=== PATIENT | female | born 1955 | race Caucasian/White ===

== ENCOUNTER 2020-08-10 14:04 | Outpatient (REF) | payer MEDICARE, SELFPAY | END 2020-08-10 14:05 | disposition home or self-care (01) | LOC: HO.LAB 14:04 | PROVIDERS: Visit Provider Internal Medicine | DX: Z78.0 Asymptomatic menopausal state (principal) | CPT/HCPCS: 88142 ==

== ENCOUNTER 2020-10-19 07:22 | Outpatient (REF) | payer MEDICARE, SELFPAY ==
--- NOTE | 2020-10-19 07:25 | MM_ITS ---
EXAMINATION: MM SCREENING DIGITAL BREAST TOMOSYNTHESIS, BILATERAL CLINICAL INFORMATION: Screening. Asymptomatic. The lifetime risk of breast cancer based on the Tyrer-Cuzick Model is 6%. COMPARISON: Mammography: 10/14/2019, 10/08/2018, 10/03/2017 TECHNIQUE: Digital breast tomosynthesis is performed in both the craniocaudal and mediolateral oblique views along with computer-aided detection (CAD). Synthesized 2D images are generated from the tomosynthesis. Additional left MLO view is provided. FINDINGS: The breasts are almost entirely fatty (ACR BI-RADS breast composition Category a). There are no significant masses, abnormal calcifications, or other abnormalities. Background stromal densities are stable. No significant changes. MM/MM tomosynthesis screening BI IMPRESSION: No mammographic evidence of malignancy. ASSESSMENT: BI-RADS 1: Negative RECOMMENDATION: Routine annual mammography screening. This patient's information was entered into a reminder system with a target due date for their next mammogram.
--- NOTE | 2020-10-19 07:35 | MM_ITS ---
EXAMINATION: BONE DENSITOMETRY CLINICAL INDICATION: Osteopenia of the left hip. COMPARISON: Previous BD dated 09/14/2016 and baseline BD dated 09/08/2014. TECHNIQUE: Using a [employer] DXA System (software version: 13.1) manufactured by [employer], dual-energy x-ray absorptiometry was performed of the lumbar spine and left hip. The images are of good technical quality. Summary results are attached. FINDINGS: AP SPINE L1-L4: Current: BMD 1.073 g/cm2, Z-score 1.0, T-score -0.9, normal, 3.7% increase from previous, 2.7% increase from baseline (<5% change is not significant). Prior: BMD 1.035 g/cm2. Baseline: BMD 1.045 g/cm2. LEFT FEMUR, NECK: Current: BMD 0.666 g/cm2, Z-score -1.0, T-score -2.7, osteoporosis. Prior: BMD 0.718 g/cm2. Baseline: BMD 0.740 g/cm2. LEFT FEMUR, TOTAL: Current: BMD 0.705 g/cm2, Z-score -1.0, T-score -2.4, osteopenia, 6.0% decrease from previous, 6.6% decrease from baseline (<5% change is not significant). Prior: BMD 0.750 g/cm2. Baseline: BMD 0.755 g/cm2. IDENTIFIED RISK FACTORS: Menopause. HISTORY OF FRACTURE: None listed. MEDICATIONS: Calcium. Vitamin D. MM/XR DEXA axial skeleton IMPRESSION: 1. DIAGNOSIS: Osteoporosis based on the lowest T-score value of -2.7 in the femoral neck applying World Health Organization criteria. 2. 10-YEAR FRACTURE RISK PREDICTION, FRAX: Major osteoporotic fracture (clinical spine, forearm, hip or shoulder) 14.2%. Hip fracture 3.5%. 3. Treatment Recommendations: NOF guidelines recommend consideration for treatment in postmenopausal women and men age 50 and older presenting with the following: -A hip or vertebral (clinical or morphometric) fracture. -T-score less than or equal to -2.5 at the femoral neck or spine after appropriate evaluation to exclude secondary causes. -Low bone mass at the hip or spine and a 10-year fracture probability by FRAX of greater than or equal to 3% for hip fracture or greater than or equal to 20% for major osteoporotic fracture based on the [place] adapted WHO algorithm. 4. Other Recommendations: All treatment decisions require clinical judgment and consideration of individual patient factors, including patient preferences, comorbidities, previous drug use, risk factors not captured in the FRAX model (e.g. frailty, falls, vitamin D deficiency, increased bone turnover, interval significant decline in bone density) and possible under or overestimation of fracture risk by FRAX. Additional medical evaluation for secondary cause of low bone mineral density may be appropriate. FUTURE SCAN RECOMMENDATION: People with diagnosed cases of osteoporosis or at high risk for fracture should have regular bone mineral density tests. For patients eligible for Medicare, routine testing is allowed once every 2 years. The testing frequency can be increased to one year for patients who have rapidly progressing disease, those who are receiving or discontinuing medical therapy to restore bone mass, or have additional risk factors.
== END 2020-10-19 07:23 | disposition home or self-care (01) ==
LOC: HO.MAMMO 07:22
PROVIDERS: PCP Internal Medicine; Visit Provider Internal Medicine
DX: Z12.31 Encounter for screening mammogram for malignant neoplasm of breast (principal); Z13.820 Encounter for screening for osteoporosis; M85.852 Other specified disorders of bone density and structure, left thigh; Z78.0 Asymptomatic menopausal state
CPT/HCPCS: 77063; 77067; 77080

== ENCOUNTER 2021-05-02 09:04 | Outpatient (REF) | payer MEDICARE, SELFPAY ==
[2021-05-02 12:01] LABS: Vitamin D 25-OH Total 36.4 ng/mL (>30)
[2021-05-02 12:31] LABS: Alanine Aminotransferase 23 U/L (0-31); Anion Gap 12 (12-20); Aspartate Amino Transferase 22 U/L (5-31); Blood Urea Nitrogen 12 mg/dL (9-16); Calcium 9.6 mg/dL (8.4-10.2); Carbon Dioxide 28 mmol/L (22-29); Chloride 103 mmol/L (96-108); Cholesterol 212 mg/dL; Estimated Glomerular Filt Rate > 60; Glucose Fasting 93 mg/dL (60-99); HDL Cholesterol 84 mg/dL; LDL Cholesterol Calculated 110 mg/dl; Potassium 4.5 mmol/L (3.3-5.1); Sodium 138 mmol/L (135-145); Triglycerides 93 mg/dL
== END 2021-05-02 09:05 | disposition home or self-care (01) ==
LOC: HO.HMGCLDS 09:04
PROVIDERS: PCP Internal Medicine; Visit Provider Internal Medicine
DX: Z00.00 Encounter for general adult medical examination without abnormal findings (principal); M81.0 Age-related osteoporosis without current pathological fracture; I10 Essential (primary) hypertension
CPT/HCPCS: 36415; 80048; 80061; 82306; 84450; 84460

== ENCOUNTER 2021-10-20 08:18 | Outpatient (REF) | payer MEDICARE, SELFPAY ==
--- NOTE | ~2021-10-20 | MM_ITS ---
EXAMINATION: MM SCREENING DIGITAL BREAST TOMOSYNTHESIS, BILATERAL CLINICAL INFORMATION: Screening. Asymptomatic. The lifetime risk of breast cancer based on the Tyrer-Cuzick Model is 5.4%. COMPARISON: Mammography: October 19, 2020 and studies dating back to September 08, 2014 TECHNIQUE: Digital breast tomosynthesis is performed in both the craniocaudal and mediolateral oblique views along with computer-aided detection (CAD). Synthesized 2D images are generated from the tomosynthesis. FINDINGS: The breasts are almost entirely fatty (ACR BI-RADS breast composition Category a). There are no significant masses, abnormal calcifications, or other abnormalities. MM/MM tomosynthesis screening BI IMPRESSION: There are no significant changes from prior study. ASSESSMENT: BI-RADS 1: Negative RECOMMENDATION: Routine annual mammography screening. This patient's information was entered into a reminder system with a target due date for their next mammogram.
--- NOTE | ~2021-10-20 | MM_ITS ---
EXAMINATION: BONE DENSITOMETRY CLINICAL INDICATION: Age-related osteoporosis without current pathological fracture. COMPARISON: Previous BD dated 10/19/2020 and baseline BD dated 09/08/2014. TECHNIQUE: Using a [employer] DXA System (software version: 13.1) manufactured by [employer], dual-energy x-ray absorptiometry was performed of the lumbar spine and left hip. The images are of good technical quality. Summary results are attached. FINDINGS: AP SPINE L1-L4: Current: BMD 1.076 g/cm2, Z-score 1.1, T-score -0.9, normal, 0.3% increase from previous, 3.0% increase from baseline (<5% change is not significant). Prior: BMD 1.073 g/cm2. Baseline: BMD 1.045 g/cm2. LEFT FEMUR, NECK: Current: BMD 0.755 g/cm2, Z-score -0.3, T-score -2.0, osteopenia. Prior: BMD 0.666 g/cm2. Baseline: BMD 0.740 g/cm2. LEFT FEMUR, TOTAL: Current: BMD 0.765 g/cm2, Z-score -0.4, T-score -1.9, osteopenia, 8.5% increase from previous, 1.3% increase from baseline (<5% change is not significant). Prior: BMD 0.705 g/cm2. Baseline: BMD 0.755 g/cm2. IDENTIFIED RISK FACTORS: Osteoporosis, menopause. HISTORY OF FRACTURE: None listed. MEDICATIONS: Calcium supplements or multivitamin, vitamin D, bisphosphonates. MM/XR DEXA axial skeleton IMPRESSION: 1. DIAGNOSIS: Osteopenia based on the lowest T-score value of -2.0 in the femoral neck applying World Health Organization criteria. 2. 10-YEAR FRACTURE RISK PREDICTION, FRAX: Major osteoporotic fracture (clinical spine, forearm, hip or shoulder) 10.9%. Hip fracture 1.9%. 3. Treatment Recommendations: NOF guidelines recommend consideration for treatment in postmenopausal women and men age 50 and older presenting with the following: -A hip or vertebral (clinical or morphometric) fracture. -T-score less than or equal to -2.5 at the femoral neck or spine after appropriate evaluation to exclude secondary causes. -Low bone mass at the hip or spine and a 10-year fracture probability by FRAX of greater than or equal to 3% for hip fracture or greater than or equal to 20% for major osteoporotic fracture based on the [place] adapted WHO algorithm. 4. Other Recommendations: All treatment decisions require clinical judgment and consideration of individual patient factors, including patient preferences, comorbidities, previous drug use, risk factors not captured in the FRAX model (e.g. frailty, falls, vitamin D deficiency, increased bone turnover, interval significant decline in bone density) and possible under or overestimation of fracture risk by FRAX. Additional medical evaluation for secondary cause of low bone mineral density may be appropriate. FUTURE SCAN RECOMMENDATION: People with diagnosed cases of osteoporosis or at high risk for fracture should have regular bone mineral density tests. For patients eligible for Medicare, routine testing is allowed once every 2 years. The testing frequency can be increased to one year for patients who have rapidly progressing disease, those who are receiving or discontinuing medical therapy to restore bone mass, or have additional risk factors.
== END 2021-10-20 08:19 | disposition home or self-care (01) ==
LOC: HO.MAMMO 08:18
PROVIDERS: PCP Internal Medicine; Visit Provider Internal Medicine
DX: Z12.31 Encounter for screening mammogram for malignant neoplasm of breast (principal); Z13.820 Encounter for screening for osteoporosis; M81.0 Age-related osteoporosis without current pathological fracture; Z79.83 Long term (current) use of bisphosphonates; Z78.0 Asymptomatic menopausal state
CPT/HCPCS: 77063; 77067; 77080

== ENCOUNTER 2022-05-31 08:50 | Outpatient (REF) | payer MEDICARE, SELFPAY ==
[2022-05-31 12:08] LABS: Vitamin D 25-OH Total 40.6 ng/mL (>30)
[2022-05-31 12:24] LABS: Alanine Aminotransferase 27 U/L (0-31); Anion Gap 16 (12-20); Aspartate Amino Transferase 23 U/L (5-31); Blood Urea Nitrogen 20 mg/dL (9-16); Calcium 9.9 mg/dL (8.4-10.2); Carbon Dioxide 29 mmol/L (22-29); Chloride 104 mmol/L (96-108); Cholesterol 227 mg/dL; Estimated Glomerular Filt Rate > 60; Glucose Fasting 115 mg/dL (60-99); HDL Cholesterol 82 mg/dL; LDL Cholesterol Calculated 130 mg/dl; Potassium 4.6 mmol/L (3.3-5.1); Sodium 144 mmol/L (135-145); Triglycerides 77 mg/dL
== END 2022-05-31 08:51 | disposition home or self-care (01) ==
LOC: HO.HMGCLDS 08:50
PROVIDERS: PCP Internal Medicine; Visit Provider Internal Medicine
DX: M85.852 Other specified disorders of bone density and structure, left thigh (principal); I10 Essential (primary) hypertension; Z79.83 Long term (current) use of bisphosphonates
CPT/HCPCS: 36415; 80048; 80061; 82306; 84450; 84460

== ENCOUNTER 2022-06-01 14:58 | Outpatient (REF) | payer MEDICARE, SELFPAY ==
--- NOTE | ~2022-06-01 | XR_ITS ---
EXAMINATION: XR ELBOW, RIGHT CLINICAL INFORMATION: Right elbow effusion COMPARISON: None TECHNIQUE: AP, lateral, and oblique views of the right elbow. FINDINGS: No appreciable bony fracture or dislocation. No osseous erosive process seen. No distinct abnormal distention of the elbow fat pads. Soft tissues over the olecranon appear unremarkable. XR/XR elbow RT min 3V IMPRESSION: No definite evidence for acute process.
== END 2022-06-01 14:59 | disposition home or self-care (01) ==
LOC: HO.HMGCX 14:58
PROVIDERS: PCP Internal Medicine; Visit Provider Internal Medicine
DX: M25.421 Effusion, right elbow (principal)
CPT/HCPCS: 73080

== ENCOUNTER → 2022-06-28 13:42 | Outpatient (BNVA) | payer MEDICARE, SELFPAY | PROVIDERS: PCP Internal Medicine; Visit Provider Physician Assistant | DX: M77.8 Other enthesopathies, not elsewhere classified (principal) | CPT/HCPCS: 99202 ==

== ENCOUNTER 2022-09-01 11:17 | Outpatient (REF) | payer MEDICARE, SELFPAY ==
[2022-09-01 14:10] LABS: MANUAL DIFF FLAG NO
[2022-09-01 14:26] LABS: Basophils Absolute Auto 0.1 X10*3/uL (0.0-0.2); Basophils Percent Auto 1.4 % (0-2); Eosinophils Absolute Auto 0.2 X10*3/uL (0.0-0.4); Eosinophils Percent Auto 3.6 % (0-4); Hematocrit 40.2 % (37.0-47.0); Hemoglobin 13.6 g/dl (12.0-16.0); Imm Gran Abs Auto 0.02 X10*3/uL (0.00-0.03); Imm Gran Pct Auto 0.5 % (0.0-0.4); Lymphocytes Absolute Auto 1.6 X10*3/uL (1.2-4.9); Lymphocytes Percent Auto 36.7 % (20-40); Mean Corpuscular HGB Conc 33.8 g/dl (31.0-35.0); Mean Corpuscular Hemoglobin 33.3 pg (27.0-33.0); Mean Corpuscular Volume 98.3 fL (80.0-98.0); Mean Platelet Volume 10.8 fL (9.4-12.3); Monocytes Absolute Auto 0.6 X10*3/uL (0.1-1.2); Monocytes Percent Auto 12.9 % (2-11); Neutrophils Percent Auto 44.9 % (45-73); Platelet Count 319 X10*3/uL (160-400); Red Blood Count 4.09 X10*6/uL (4.20-5.50); Red Cell Distribution Width 11.8 % (11.0-16.0); White Blood Count 4.4 X10*3/uL (4.8-10.8)
== END 2022-09-01 11:18 | disposition home or self-care (01) ==
LOC: HO.HMGCLDS 11:17
PROVIDERS: PCP Internal Medicine; Visit Provider Internal Medicine
DX: R00.2 Palpitations (principal); F41.9 Anxiety disorder, unspecified; Z83.49 Family history of other endocrine, nutritional and metabolic diseases
CPT/HCPCS: 36415; 84443; 85025

== ENCOUNTER 2022-10-24 07:45 | Outpatient (REF) | payer MEDICARE, SELFPAY ==
--- NOTE | ~2022-10-24 | MM_ITS ---
EXAMINATION: MM SCREENING DIGITAL BREAST TOMOSYNTHESIS, BILATERAL CLINICAL INFORMATION: Screening. Asymptomatic. The lifetime risk of breast cancer based on the Tyrer-Cuzick Model is 6%. COMPARISON: Mammography: 10/20/2021, 10/19/2020, 10/14/2019 TECHNIQUE: Digital breast tomosynthesis is performed in both the craniocaudal and mediolateral oblique views along with computer-aided detection (CAD). Synthesized 2D images are generated from the tomosynthesis. FINDINGS: The breasts are almost entirely fatty (ACR BI-RADS breast composition Category a). There are no significant masses, abnormal calcifications, or other abnormalities. Background stromal markings are similar to prior exams. No developing density or architectural abnormality. The axilla and skin contours are unremarkable. MM/MM tomosynthesis screening BI IMPRESSION: No mammographic evidence of malignancy. ASSESSMENT: BI-RADS 1: Negative RECOMMENDATION: Routine annual mammography screening. This patient's information was entered into a reminder system with a target due date for their next mammogram.
== END 2022-10-24 07:46 | disposition home or self-care (01) ==
LOC: HO.MAMMO 07:45
PROVIDERS: PCP Internal Medicine; Visit Provider Internal Medicine
DX: Z12.31 Encounter for screening mammogram for malignant neoplasm of breast (principal)
CPT/HCPCS: 77063; 77067

== ENCOUNTER → 2022-11-09 13:44 | Outpatient (BNVA) | payer MEDICARE, SELFPAY | PROVIDERS: PCP Internal Medicine; Referring Provider Internal Medicine; Visit Provider Internal Medicine Cardiovascular Disease | DX: R07.89 Other chest pain (principal); R00.2 Palpitations; I10 Essential (primary) hypertension | CPT/HCPCS: 99202 ==

== ENCOUNTER → 2022-11-23 13:59 | Outpatient (REF) | payer MEDICARE, SELFPAY ==
--- NOTE | 2022-11-23 14:02 | HM_ITS ---
Conclusion: 1. Patient was monitored for total period of 7 days 2. Baseline was normal sinus rhythm with average heart rate of 66 beats per minute 3. No significant pauses noted with lowest heart rate of 47 beats per minute 4. Total of 21,699 PACs accounting for about 6% of total beats account for frequent PACs 5. Frequent episodes of SVT total of 19 with fastest at 187 beats per minute in longest at 43 beats per minute 6. Patient activated the marker 14 times with associated symptoms of heart racing palpitation which correlated with either sinus rhythm or PACs. None of these symptoms correlated with SVT. MTDD
--- NOTE | 2022-11-23 14:02 | CA_ITS ---
Transthoracic Echocardiogram Patient (Last, First, Middle): Kim Cline A Gender: Female Date of : 1955 Age: 67 Procedure Date: 11/23/2022 Procedure Type: Transthoracic Echocardiogram Location: OP Height: 154.94 cm Weight: 54.43 kg BSA: 1.52 m2 Heart Rate: bpm BP: 117 / 80 mmHg Administrator Of Home Health: SARI Referring MD: Melvin Naik MD Railroad Firer/Fireman: Melvin Naik MD Symptoms: R00.2 - Palpitations Study Quality: Adequate ECG Rhythm: Sinus Conclusions: - Essentially normal study Findings Left Ventricle Normal left ventricular size, thickness, and systolic function. The visually estimated ejection fraction is between 65-70%. Spectral Doppler is indicative of a normal filling pattern. Peak GLS is -21.4%, within normal limits. Right Ventricle Normal right ventricular cavity size and systolic function. Atria Both atria are normal in size. There is no evidence of interatrial shunt. Aortic Valve Normal aortic valve structure and function. There is no aortic valve stenosis. There is no aortic valve regurgitation. Mitral Valve Normal mitral valve structure and function. There is trace mitral valve regurgitation. There is no mitral valve stenosis. Pulmonic Valve The pulmonic valve is likely normal. There is trace pulmonic valve regurgitation. Tricuspid Valve Normal tricuspid valve structure. There is mild tricuspid valve regurgitation. The right ventricular systolic pressure is normal. The right ventricular systolic pressure is 23 mmHg. Normal right atrial pressure. There is no evidence of pulmonary hypertension. Great Vessels All visible segments of the aorta are normal in size. The pulmonary artery was not well visualized. Venous The inferior vena cava is normal in size and collapses greater than 50% with inspiration. Pericardium/Pleural There is no evidence of pericardial effusion. Measurements 2D Linear Measurements IVSd: 0.89 0.6-0.9/0.6-1.0 cm LVIDd: 4.09 3.9-5.3/4.2-5.9 cm LVIDd Index: 2.69 2.4-3.2/2.2-3.1 cm/m2 LVIDs: 2.64 2.0-3.6 cm LVPWd: 1.00 0.7-1.1 cm LA Diam: 3.10 2.7-3.8/3.0-4.0 cm LAIDs Index: 2.04 1.5-2.3 cm/m2 LV Mass: 151.69 67-162/88-224 g LV Mass Index: 99.80 43-95/49-115 g/m2 LVOT Diam: 1.80 3.0+(-)1.3 cm 2D Systolic Function EF 4C: 65.10 >55% EF 2C: 71.90 >55% EF BiP: 68.80 >55% Mitral Valve MV Pk E: 0.82 MV PK A: 0.72 MV Decel Time: 199.00 E/A: 1.10 E'Lateral: 9.57 E'Medial: 6.31 E/E' Med: 13.00 E/E' Lat: 8.60 PHT: 58.00 MVA PHT: 3.79 Decel [place]: 4.13 Aortic Valve AoV Pk Van: 1.40 AoV Mn Van: 0.97 AoV VTI: 0.35 AoV Pk Grad: 8.00 Aov Mn Grad: 4.00 CONNIE Cont.VTI: 2.08 LVOT LVOT Pk Van: 1.32 LVOT Mn Van: 0.77 LVOT VTI: 0.29 LVOT Pk Grad: 7.00 LVOT Mn Grad: 3.00 LVOT Diam: 1.80 LVOT Area: 2.54 Diastolic Function MV Pk E: 0.82 MV Pk A: 0.72 E/A: 1.10 E'Medial: 6.31 E/E' Med: 13.00 E' Laterial: 9.57 E/E' Lat: 8.60 Right Ventricle TAPSE (mm): 25.40 TVS' Van: 12.60 Tricuspid Valve TR Pk Van: 2.25 TR Pk Grad: 20.00 RA Press: 3.00 RVSP: 23.00 Great Vessels Aorta Sinus of Valsalva: 2.73 2.0-3.[address] [place]: 2.47 1.7-3.4 cm Ao Asc: 2.80 2.1-3.4 cm Updated in Other Vendor System with Status of Final Melvin Naik MD electronically signed on 11/24/2022 1:56:47 PM with status of Final
== END ==
LOC: HO.CARD 13:59
PROVIDERS: PCP Internal Medicine; Visit Provider Internal Medicine Cardiovascular Disease
DX: R00.2 Palpitations (principal); I49.1 Atrial premature depolarization; I10 Essential (primary) hypertension
CPT/HCPCS: 93242; 93306; 93356

== ENCOUNTER 2022-12-06 07:14 | Outpatient (REF) | payer MEDICARE, SELFPAY ==
[2022-12-06 11:47] LABS: Estimated Average Glucose 111 mg/dL; Hemoglobin A1C 119.3301 umol/L; Hemoglobin A1c % 5.5 %
[2022-12-06 11:54] LABS: Glucose Fasting 91 mg/dL (60-99)
[2022-12-06 12:06] LABS: Vitamin D 25-OH Total 36.2 ng/mL (>30)
== END 2022-12-06 07:15 | disposition home or self-care (01) ==
LOC: HO.HMGCLDS 07:14
PROVIDERS: PCP Internal Medicine; Visit Provider Internal Medicine
DX: R73.01 Impaired fasting glucose (principal); Z78.0 Asymptomatic menopausal state
CPT/HCPCS: 36415; 82306; 82947; 83036

== ENCOUNTER → 2022-12-18 10:53 | Outpatient (REF) | payer MEDICARE, SELFPAY ==
--- NOTE | 2022-12-18 10:55 | CA_ITS ---
Acquisition Time: 2022-12-18 11:21:09 Total Exercise Time: 00:04:17 Test Indications: ABN EKG, CP Medications: SEE H Protocol: ABDIRAHMAN Max HR: 166 BPM 108% of Pred: 153 BPM Max BP: 115/062 mmHG Max Work Load: 5.7 METS Exercise stress test with exercise 4 min 17 sec of Abdirahman protocol, achieving 73% MPHR with request to stop due to leg fatigue, with mild sob, no chest discomfort, with isolated PACs, with normotensive response to exercise, with borderline EKG changes noted. Echo images obtained by tech at rest and immediately post peak exercise. Definity contrast used. Test reviewed with Dr Naik Referred By: Melvin Naik Overread By: MELLISSA GARCIA
== END ==
LOC: HO.CARD 10:53
PROVIDERS: PCP Internal Medicine; Visit Provider Internal Medicine Cardiovascular Disease
DX: R07.89 Other chest pain (principal)
CPT/HCPCS: 93350; Q9957

== ENCOUNTER → 2022-12-26 14:20 | Outpatient (BNVA) | payer MEDICARE, SELFPAY | PROVIDERS: PCP Internal Medicine; Referring Provider Internal Medicine; Visit Provider Internal Medicine Cardiovascular Disease | DX: I49.1 Atrial premature depolarization (principal); I49.9 Cardiac arrhythmia, unspecified; I10 Essential (primary) hypertension; R42 Dizziness and giddiness | CPT/HCPCS: 99212 ==

== ENCOUNTER 2023-06-01 07:07 | Outpatient (REF) | payer MEDICARE, SELFPAY ==
[2023-06-01 11:11] LABS: MANUAL DIFF FLAG NO
[2023-06-01 11:32] LABS: Basophils Absolute Auto 0.1 X10*3/uL (0.0-0.2); Basophils Percent Auto 1.7 % (0-2); Eosinophils Absolute Auto 0.3 X10*3/uL (0.0-0.4); Hemoglobin 13.4 g/dl (12.0-16.0); Imm Gran Abs Auto 0.01 X10*3/uL (0.00-0.03); Imm Gran Pct Auto 0.2 % (0.0-0.4); Lymphocytes Absolute Auto 1.6 X10*3/uL (1.2-4.9); Lymphocytes Percent Auto 38.8 % (20-40); Mean Corpuscular HGB Conc 33.5 g/dl (31.0-35.0); Mean Corpuscular Hemoglobin 33.9 pg (27.0-33.0); Mean Corpuscular Volume 101.3 fL (80.0-98.0); Mean Platelet Volume 10.6 fL (9.4-12.3); Monocytes Absolute Auto 0.4 X10*3/uL (0.1-1.2); Monocytes Percent Auto 10.5 % (2-11); Neutrophils Absolute Auto 1.8 x10*3/uL (2.0-8.3); Neutrophils Percent Auto 42.8 % (45-73); Platelet Count 334 X10*3/uL (160-400); Red Blood Count 3.95 X10*6/uL (4.20-5.50); Red Cell Distribution Width 11.7 % (11.0-16.0); White Blood Count 4.2 X10*3/uL (4.8-10.8)
[2023-06-01 11:53] LABS: Alanine Aminotransferase 21 U/L (0-31); Anion Gap 11 (12-20); Aspartate Amino Transferase 25 U/L (5-31); Blood Urea Nitrogen 17 mg/dL (9-16); Calcium 10.2 mg/dL (8.4-10.2); Carbon Dioxide 31 mmol/L (22-29); Chloride 105 mmol/L (96-108); Cholesterol 227 mg/dL (<200); Estimated Glomerular Filt Rate > 60; Glucose Fasting 92 mg/dL (60-99); HDL Cholesterol 79 mg/dL (>40); LDL Cholesterol Calculated 130 mg/dL (<100); Potassium 4.6 mmol/L (3.3-5.1); Sodium 142 mmol/L (135-145); Triglycerides 91 mg/dL (<150)
[2023-06-01 12:15] LABS: Vitamin D 25-OH Total 62.7 ng/mL (>30)
== END 2023-06-01 07:08 | disposition home or self-care (01) ==
LOC: HO.HMGCLDS 07:07
PROVIDERS: PCP Internal Medicine; Visit Provider Internal Medicine
DX: M85.852 Other specified disorders of bone density and structure, left thigh (principal); R73.01 Impaired fasting glucose; I49.1 Atrial premature depolarization; I10 Essential (primary) hypertension; F41.9 Anxiety disorder, unspecified; R53.81 Other malaise
CPT/HCPCS: 36415; 80048; 80061; 82306; 84450; 84460; 85025

== ENCOUNTER 2023-08-20 08:35 | Outpatient (AMB) | payer MEDICARE, SELFPAY ==
[2023-08-20 09:52] VITALS: BP 102/60; PULSE 50; TEMP 36.6; O2SAT 98; BMI 23.6
--- NOTE | 2023-08-20 09:52 | AM.OFFWIN_ITS ---
Intake Vital Signs 08/20/23 09:52 Height 5 ft 1 in Weight 125 lb BMI 23.6 BP 102/60 Blood Pressure Location Rt brachial Position Sitting Pulse 50 Pulse Source Pulse Oximeter Temp 97.9 F Temp Source Temporal Artery Scan Pulse Oximetry (%) 98 Intake Visit Reasons: EP both ears blocked Intake Note: pt is here for c/o bilateral ear blockage Patient Tobacco Use Status: Never used Tobacco Allergies codeine Allergy (Unknown, Verified 08/20/23 10:17) lightheadedness/dizzy Medication List - Last Reconciled 08/20/23 by Flex Ray MD alendronate 70 mg PO QWEEK 90 days amlodipine 5 mg PO DAILY 90 days calcium carbonate (Calcium) 600 mg PO DAILY cholecalciferol (vitamin D3) 50 mcg PO DAILY 90 days citalopram 10 mg PO DAILY lorazepam 0.5 mg PO DAILY PRN metoprolol succinate ER 12.5 mg PO DAILY multivitamin,[id number] (Complete Multivitamin tablet) 1 tab PO DAILY Do you need a note to return to daycare/school/sports/work: Yes HPI EP both ears blocked HPI Details 68-year-old female presents to the [facility] for a sick visit. Patient is reporting that both her ears are blocked. Difficulty hearing. [facility] Medical History Abnormal finding on EKG Anxiety Encounter for monitoring alendronate therapy Essential hypertension Impacted cerumen of both ears Impaired fasting glucose Osteopenia of left femoral neck Osteoporosis Rosacea Sensation of chest tightness Swelling of joint, elbow, right Surgical History History of appendectomy History of cataract surgery Hx of cholecystectomy Hx of colonoscopy Family History Father Hx of CABG CVD (cardiovascular disease) Mother HTN (hypertension) Parkinson disease Brother No problems noted. Brother No problems noted. Sister No problems noted. Housing: House Alcohol intake: never Patient Tobacco Use Status: Never used Tobacco e-Cigarette/Vaping Use: Never Used Second Hand Smoke Exposure: No Current occupational status: retired Current occupational exposures/hazards: No Cognitive needs: No Hearing needs: No Vision needs: Yes Physical Exam Vital Signs: Last Vital Signs Temp 97.9 F 08/20/23 09:52 Pulse 50 08/20/23 09:52 BP 102/60 08/20/23 09:52 Pulse Ox 98 08/20/23 09:52 BMI result Body Mass Index 23.6 HEENT Other: Right and left ears: Filled with wax. Office Procedures Cerumen Removal From which ear canal was the cerumen removed: left Removal: irrigation and otoscope w/curette Notes: patient tolerated procedure well [id number] Wax Removal by Spoon/Curette Assessment & Plan Assessment & Plan (1) Impacted cerumen of both ears: Code(s): H61.23 - Impacted cerumen, bilateral Plan Patient tolerated the procedure well. Orders: Orders AMB Cerumen Removal Today H61.23 - Impacted cerumen, bilateral Coding Level of Care Code Est Pt Level 3 (29536) Diagnoses Impacted cerumen of both ears H61.23 CPT Codes Office Procedure - CPT: 93889-Kwx Wax Removal by Spoon/Curette ([id number])
== END 2023-08-20 11:03 | disposition home or self-care (01) ==
PROVIDERS: PCP Internal Medicine; Visit Provider Internal Medicine
DX: H91.93 Unspecified hearing loss, bilateral (principal); H61.23 Impacted cerumen, bilateral
CPT/HCPCS: 69210; 99212

== ENCOUNTER 2023-10-30 11:41 | Outpatient (REF) | payer MEDICARE, SELFPAY ==
--- NOTE | ~2023-10-30 | MM_ITS ---
EXAMINATION: BONE DENSITOMETRY CLINICAL INDICATION: Other specified disorders of bone density and structure, left thigh. COMPARISON: Previous BD dated 10/20/2021 and baseline BD dated 09/08/2014. TECHNIQUE: Using a [employer] DXA System (software version: 13.1) manufactured by [employer], dual-energy x-ray absorptiometry was performed of the lumbar spine and left hip. The images are of good technical quality. Summary results are attached. FINDINGS: AP SPINE L1-L4 (excluding L3): The data of L1-L4 has been changed to exclude the L3 vertebral body, because degenerative sclerosis at this level may cause overestimation of lumbar spine density. Current: BMD 1.074 g/cm2, Z-score 1.1, T-score -0.8, normal, 4.8% increase from previous, 7.1% increase from baseline (<5% change is not significant). Prior: BMD 1.025 g/cm2. Baseline: BMD 1.003 g/cm2. LEFT FEMUR, NECK: Current: BMD 0.762 g/cm2, Z-score -0.2, T-score -2.0, osteopenia. Prior: BMD 0.755 g/cm2. Baseline: BMD 0.740 g/cm2. LEFT FEMUR, TOTAL: Current: BMD 0.770 g/cm2, Z-score -0.3, T-score -1.9, osteopenia, 0.7% increase from previous, 2.0% increase from baseline (<5% change is not significant). Prior: BMD 0.765 g/cm2. Baseline: BMD 0.755 g/cm2. IDENTIFIED RISK FACTORS: Osteoporosis. Alcohol (3 or more units per day). Menopause. HISTORY OF FRACTURE: None listed. MEDICATIONS: Calcium supplement and/or multivitamin. Vitamin D. Bisphosphonates. MM/XR DEXA axial skeleton IMPRESSION: 1. DIAGNOSIS: Osteopenia based on the lowest T-score value of -2.0 in the femoral neck applying World Health Organization criteria. 2. 10-YEAR FRACTURE RISK PREDICTION, FRAX: Not performed in this patient on estrogen or bone building treatments. 3. Treatment Recommendations: NOF guidelines recommend consideration for treatment in postmenopausal women and men age 50 and older presenting with the following: -A hip or vertebral (clinical or morphometric) fracture. -T-score less than or equal to -2.5 at the femoral neck or spine after appropriate evaluation to exclude secondary causes. -Low bone mass at the hip or spine and a 10-year fracture probability by FRAX of greater than or equal to 3% for hip fracture or greater than or equal to 20% for major osteoporotic fracture based on the [place] adapted WHO algorithm. 4. Other Recommendations: All treatment decisions require clinical judgment and consideration of individual patient factors, including patient preferences, comorbidities, previous drug use, risk factors not captured in the FRAX model (e.g. frailty, falls, vitamin D deficiency, increased bone turnover, interval significant decline in bone density) and possible under or overestimation of fracture risk by FRAX. Additional medical evaluation for secondary cause of low bone mineral density may be appropriate. FUTURE SCAN RECOMMENDATION: People with diagnosed cases of osteoporosis or at high risk for fracture should have regular bone mineral density tests. For patients eligible for Medicare, routine testing is allowed once every 2 years. The testing frequency can be increased to one year for patients who have rapidly progressing disease, those who are receiving or discontinuing medical therapy to restore bone mass, or have additional risk factors.
== END 2023-10-30 11:42 | disposition home or self-care (01) ==
LOC: HO.MAMMO 11:41
PROVIDERS: PCP Internal Medicine; Visit Provider Internal Medicine
DX: Z12.31 Encounter for screening mammogram for malignant neoplasm of breast (principal); Z13.820 Encounter for screening for osteoporosis; M85.852 Other specified disorders of bone density and structure, left thigh; Z78.0 Asymptomatic menopausal state
CPT/HCPCS: 77063; 77067; 77080

== ENCOUNTER → 2023-10-30 13:00 | Outpatient (BNV) | payer MEDICARE, SELFPAY | PROVIDERS: PCP Internal Medicine; Visit Provider Radiology Diagnostic Radiology | DX: Z12.31 Encounter for screening mammogram for malignant neoplasm of breast (principal) | CPT/HCPCS: 77063; 77067 ==

== ENCOUNTER 2024-01-08 12:11 | Outpatient (AMB) | payer MEDICARE, SELFPAY ==
[2024-01-08 12:32] VITALS: BP 110/68; PULSE 48; BMI 24.2
--- NOTE | 2024-01-08 12:32 | MHC.OFFVIS ---
Intake Vital Signs 01/08/24 12:32 Height 5 ft 1 in Weight 127 lb 13.89 oz BMI 24.2 BP 110/68 Blood Pressure Location Lt brachial Position Sitting Pulse 48 L Intake Visit Reasons: 1 yr Intake Note: 1 year follow-up with ekg feeling good Cab Driver Required: No Allergies codeine Allergy (Unknown, Verified 08/20/23 10:17) lightheadedness/dizzy HPI HPI Comments History of Present Illness Details Kim comes for follow-up. She says she walks 5-1/2 miles every day and is been doing well. She does get symptoms occasionally of fast heart rate when she checks her watches usually up to 80 beats per minute. She has not had any prolonged irregular heartbeat. She also occasionally feels fluttering in her chest. Denies any exertional chest pain or shortness of breath. Denies any orthopnea, PND, leg edema. No lightheadedness, syncope. Blood pressure remains very well control with systolic blood pressure between 100-110 mmHg. [facility] Medical History Abnormal finding on EKG Sensation of chest tightness Impaired fasting glucose Swelling of joint, elbow, right Osteopenia of left femoral neck Encounter for monitoring alendronate therapy Impacted cerumen of both ears Osteoporosis Rosacea Essential hypertension Anxiety Surgical History Hx of colonoscopy History of cataract surgery History of appendectomy Hx of cholecystectomy Family History Father Hx of CABG CVD (cardiovascular disease) Mother HTN (hypertension) Parkinson disease Brother No problems noted. Brother No problems noted. Sister No problems noted. Social History Housing: House Alcohol intake: never Patient Tobacco Use Status: Never used Tobacco e-Cigarette/Vaping Use: Never Used Second Hand Smoke Exposure: No Current occupational status: retired Current occupational exposures/hazards: No Cognitive needs: No Hearing needs: No Vision needs: Yes Review of Systems Const Denies chills, Denies fatigue, Denies fever(s), Denies frequent falls, Denies weakness, Denies weight gain and Denies weight loss ENT Denies dizziness Card Denies chest pain, Denies leg edema, Denies lightheadedness, Denies palpitations, Denies dyspnea, Denies dyspnea on exertion, Denies orthopnea and Denies other (loss of consciousness) Resp Denies cough, Denies dyspnea and Denies dyspnea on exertion GI Denies hematochezia and Denies change in stool character Musc Denies abnormal gait, Denies muscle weakness, Denies numbness, Denies radiating pain into limb and Denies tingling Neuro Denies abnormal gait, Denies dizziness, Denies frequent falls, Denies numbness, Denies tingling and Denies weakness Endo Denies fatigue and Denies palpitations Physical Exam Vital Signs: Last Vital Signs Pulse 48 L 01/08/24 12:32 BP 110/68 01/08/24 12:32 BMI result Body Mass Index 24.2 Const General: cooperative, comfortable, no acute distress, well developed, alert, awake, Physically active and well groomed Nutritional Appearance: well nourished and thin Orientation/consciousness: patient oriented x3 Limitations: no limitations Neck Neck: Yes trachea midline, Yes supple and Yes no JVD Resp Effort & Inspection: normal respiratory effort Auscultation: clear to auscultation bilaterally Cardio Jugular venous distension: no JVD Palpation: normal PMI Rate: regular rate Rhythm: regular rhythm Heart sounds: S1 normal heart sound present, S2 normal heart sound present, no click, no gallops, no murmurs and no rubs Neuro General: patient oriented x3 Extrem General: Yes no clubbing, cyanosis or edema Office Procedures EKG Details: EKG shows normal sinus rhythm with first-degree AV block with PACs with rightward axis [id number], Complete Assessment & Plan Assessment & Plan (1) Cardiac arrhythmia: Code(s): I49.9 - Cardiac arrhythmia, unspecified Plan: Patient with cardiac arrhythmias with prior frequent PACs as a short runs of SVT with no major life-limiting symptoms on low-dose of metoprolol at this point time. Continue the same. Vagal maneuvers were discussed. Advised to avoid stimulants. Stress mitigation strategies were discussed. Risk of potentially developing atrial fibrillation was discussed. She develops any prolonged irregular heartbeat that do not subside advised to call my office for EKG or go to the emergency room. She understands and agrees. (2) Essential hypertension: Code(s): I10 - Essential (primary) hypertension Plan: Hypertension which is currently extremely well optimized continue current therapy with amlodipine and metoprolol therapy. She has not having any symptoms of orthostatic lightheadedness at this point in time. Continue maintain adequate hydration. Low-salt diet was discussed advised to intermittently measure blood pressure at home and maintain a log. Goal blood pressure less than 130/84. Will follow up in the clinic in 2 years time, sooner p.r.n.. Thank you for allowing me to partake in the care Coding Level of Care Code Est Pt Level 4 (16316) Diagnoses Cardiac arrhythmia I49.9 Essential hypertension I10 CPT Codes EKG - CPT: 83174-[id number], Complete ([id number])
== END 2024-01-08 12:52 | disposition home or self-care (01) ==
PROVIDERS: Visit Provider Internal Medicine Cardiovascular Disease
DX: I49.9 Cardiac arrhythmia, unspecified (principal); I10 Essential (primary) hypertension
CPT/HCPCS: 93010; 99214

== ENCOUNTER → 2024-01-08 12:11 | Outpatient (BNVA) | payer MEDICARE, SELFPAY | PROVIDERS: Visit Provider Internal Medicine Cardiovascular Disease | DX: I49.9 Cardiac arrhythmia, unspecified (principal); I10 Essential (primary) hypertension | CPT/HCPCS: 93005; 99212 ==

== ENCOUNTER 2024-04-09 13:13 | Outpatient (AMB) | payer MEDICARE, SELFPAY ==
[2024-04-09 13:25] VITALS: BP 110/60; PULSE 58; O2SAT 98; BMI 24.0
--- NOTE | 2024-04-09 13:25 | MHC.PC.OV ---
Vital Signs 04/09/24 13:25 Height 5 ft 1 in Weight 127 lb BMI 24.0 BP 110/60 Blood Pressure Location Rt brachial Position Sitting Pulse 58 Pulse Source Pulse Oximeter Pulse Oximetry (%) 98 Oxygen Delivery Method Room Air Intake Visit Reasons: PE Intake Note: Pt is here today for her PE: Last mammogram 10/30/23, bone density scan 10/30/23, colonoscopy 06/19/17 Allergies codeine Allergy (Unknown, Verified 04/09/24 13:28) lightheadedness/dizzy Tobacco use date assessed: 04/09/24 Fall risk assessment: No Falls in past year Last assessed Fall Risk: 04/09/24 Dental Screening Dental Screen Date: 04/09/24 Did you have a dental visit in the last 12 months?: Yes Did you have a dental problem in the last 6 months where you did not have access to dental care?: No Was dental information given to patient?: Patient has dentist HPI PE HPI Details 69-year-old lady with generalized anxiety disorder and impaired fasting glucose levels, macrocytosis without anemia, general cardiac arrhythmia currently controlled on metoprolol succinate 12.5 mg daily, followed by cardiology, has hypertension, and osteopenia of left femoral neck currently on alendronate, here today for her physical exam. -she is up-to-date with her screening mammogram and bone density scan done earlier this year, which showed benign findings and normal bone density in lumbar spine and osteopenia in left femoral neck and left femur, unchanged from previous test. Last colonoscopy was done in 2016 with mild diverticulosis and internal and external hemorrhoids noted, done by Dr. Crespo, due for recheck in 2026. Has generalized anxiety disorder, currently on citalopram 10 mg daily. However she has been experiencing more anxiety attacks lately, due to some increased stressors in personal life, would like to try increasing dose to 20 mg daily [facility] Medical History (Updated 04/13/24 @ 18:03 by Ashley Guzmán MD) Macrocytosis without anemia Impaired fasting glucose Osteopenia of left femoral neck Encounter for monitoring alendronate therapy Impacted cerumen of both ears Osteoporosis Rosacea Essential hypertension Anxiety Surgical History Hx of colonoscopy History of cataract surgery History of appendectomy Hx of cholecystectomy Family History Father Hx of CABG CVD (cardiovascular disease) Mother HTN (hypertension) Parkinson disease Brother No problems noted. Brother No problems noted. Sister No problems noted. Social History Housing: House Alcohol intake: never Patient Tobacco Use Status: Never used Tobacco e-Cigarette/Vaping Use: Never Used Second Hand Smoke Exposure: No Current occupational status: retired Current occupational exposures/hazards: No Cognitive needs: No Hearing needs: No Vision needs: Yes Questionnaire PHQ-9 Over the last 2 weeks, how often have you been bothered by any of the following problems? 1. Little interest or pleasure in doing things: several days 2. Feeling down, depressed, or hopeless: not at all 3. Trouble falling or staying asleep, or sleeping too much: several days 4. Feeling tired or having little energy: several days 5. Poor appetite or overeating: not at all 6. Feeling bad about yourself - or that you are a failure or have let yourself or your family down: not at all 7. Trouble concentrating on things, such as reading the newspaper or watching television: not at all 8. Moving or speaking so slowly that other people could have noticed. Or the opposite - being so fidgety or restless that you have been moving around a lot more than usual: not at all 9. Thoughts that you would be better off or of hurting yourself in some way: not at all Total score: 3 Depression Screening Interpretation: Negative Depression Screening Done: Yes 90056 - PHQ-9 Billing: Yes Source: Developed by Drs. Oswaldo Prasad, Wendy Dewey, Yung Michael and colleagues, with an educational leslie from [employer]. Thrive Questionnaire Date Thrive assessed: 04/08/24 I am a: Patient What is your living situation today?: I have a steady place to live Within the past 12 months, did the food you bought not last and you didn't have the money to get more?: Never true Within the past 12 months, did you worry whether your food would run out before you got money to buy more?: Never true Do you have trouble paying for medicines?: No Do you have trouble getting transportation to medical appointments?: No Do you have trouble paying your heating and electricity bill?: No Do you have trouble taking care of your child, family member or friend?: No Do you have trouble with day-to-day activities such as bathing, preparing meals, shopping, managing finances, etc.?: No Are you currently unemployed and looking for a job?: No Are you interested in more education?: No Please select the resources that you would like help with: Housing/Residential Currently or been in a relationship where the following occur: No concerns reported THRIVE Score: 0 AUDIT C Alcohol Use Questionnaire (AUDIT-C) 1. How often do you have a drink containing alcohol?: 2-3 times a week 2. How many drinks containing alcohol do you have on a typical day when you are drinking?: 1 or 2 3. How often do you have six or more drinks on one occasion?: Never Total Score: 3 MAXIMUS-7 AMB Questionnaire MAXIMUS-7 Date MAXIMUS - 7 assessed: 04/09/24 Feeling nervous, anxious, or on edge: 2 = More than half the days Not being able to stop or control worryin = Several days Worrying too much about different things: 1 = Several days Trouble relaxin = Several days Being so restless that it is hard to sit still: 0 = Not at all Becoming easily annoyed or irritable: 1 = Several days Feeling afraid as if something awful might happen: 0 = Not at all Total MAXIMUS-7 score (0-4 normal; 5-9 mild; 10-14 moderate; 15-21 severe): 6 Source: Developed by Drs. Oswaldo Prasad, Wendy Dewey, Yung Michael and colleagues, with an educational leslie from [employer]. MAXIMUS-7 Assessment Billing MAXIMUS-7 Assessment Tool: MAXIMUS-7 Assessment 08408 Review of Systems Const Denies chills, Denies fatigue, Denies fever(s), Denies frequent falls and Denies weakness Eyes Denies change in vision ENT Denies dizziness Card Denies chest pain, Denies leg edema, Denies lightheadedness, Denies palpitations, Denies dyspnea, Denies dyspnea on exertion and Denies orthopnea Resp Denies cough, Denies dyspnea and Denies dyspnea on exertion GI Denies hematochezia and Denies change in stool character Reports no additional complaints Musc Denies abnormal gait, Denies muscle weakness, Denies numbness, Denies radiating pain into limb and Denies tingling Skin/Breast Denies breast pain, Denies breast mass and Denies rash Neuro Denies abnormal gait, Denies dizziness, Denies frequent falls, Denies numbness, Denies tingling and Denies weakness Psych Reports as per HPI Endo Denies fatigue and Denies palpitations Irving/Lymph Reports no additional complaints Aller/Immun Reports no additional complaints Physical exam (Primary Care) Vital Signs: Last Vital Signs Pulse 58 04/09/24 13:25 BP 110/60 04/09/24 13:25 Pulse Ox 98 04/09/24 13:25 Oxygen Delivery Method Room Air 04/09/24 13:25 BMI result Body Mass Index 24.0 Tobacco/Smoking Status: Tobacco use Status Tobacco use date assessed 04/09/24 04/09/24 13:31 Patient Tobacco Use Status Never used Tobacco 04/09/24 13:27 e-Cigarette/Vaping Use Never Used 04/09/24 13:27 PHQ-9: PHQ-9 Score PHQ-9: Total score 4 04/09/24 14:07 Depression Screening Interpretation: Negative Thrive Assessment: Date of Thrive Assessment Date Thrive assessed 04/08/24 04/09/24 13:27 Currently or been in a relationship where the following occur: No concerns reported Const General: no acute distress Nutritional Appearance: average body habitus Orientation/consciousness: patient oriented x3 HENMT Head: Yes normocephalic Ears: external ears normal General nose exam: Normal external nose present Face and sinus: Yes face symmetric Mouth: Normal oral and palatal mucosa present and moist mucous membranes Eyes General: appearance normal, both eyes and all related structures Neck Neck: Yes full ROM and Yes no lymphadenopathy Chest Chest palpation & inspection: normal inspection of the chest Breast/axilla palpation: normal palpation of the breasts Resp Effort & Inspection: normal respiratory effort and able to speak in complete sentences Auscultation: clear to auscultation bilaterally Cardio Rate: regular rate Rhythm: regular rhythm Heart sounds: S1 normal heart sound present and S2 normal heart sound present GI Inspection: Yes normal to inspection Palpation (GI): Soft to palpation, nontender and no guarding Auscultation: normal bowel sounds General: Yes no CVA tenderness Back/Spine/Pelvis Back: no CVA tenderness and No back tenderness Skin General skin exam: no rashes or lesions noted Neuro General: patient oriented x3, gait normal, moves all extremities, no focal motor deficits and CN's II-XI intact bilaterally Extrem General: Yes full ROM, Yes no joint enlargement, Yes no clubbing, cyanosis or edema and Yes normal gait Psych Appearance: grossly normal Mental Status: mental status grossly normal Speech and movement: Normal speech and movement present Affect: normal affect Attitude: cooperative Thought process: Normal thought process present Thought content: Normal thought content present Assessment and Plan Assessment & Plan (1) Osteopenia of left femoral neck: Comment: Noted on bone density done in 2021 Code(s): M85.852 - Other specified disorders of bone density and structure, left thigh Plan: Reviewed recent bone density scan results, continue with alendronate 70 mg once a week, together with calcium and vitamin-D supplements (2) Essential hypertension: Code(s): I10 - Essential (primary) hypertension Plan: Blood pressure at goal of less than 130/80. Continue amlodipine mg daily. Reinforced importance of following a low sodium diet, getting regular exercise, and lowering stress levels. (3) Anxiety: Code(s): F41.9 - Anxiety disorder, unspecified Plan: Will increase citalopram dose to 20 mg once a day. Discussed symptoms of anxiety. Discussed other ways to relieve stress including : exercise or a massage, Get enough rest, Avoid alcohol, caffeine, nicotine, and illegal drugs which can increase your anxiety level and cause sleep problems. (4) Macrocytosis without anemia: Code(s): D75.89 - Other specified diseases of blood and blood-forming organs Plan: Ordered a repeat CBC, vitamin B12 and vitamin-D level (5) Annual visit for general adult medical examination with abnormal findings: Code(s): Z00.01 - Encounter for general adult medical examination with abnormal findings Plan: Will check appropriate labs. Continue with regular dental visit every 6 months and regular eye exams, at least every 2 years. Take adequate calcium in diet and vitamin-D 3 at 2000 IU per cap once a day, in addition to weight-bearing exercises to help maintain good muscle tone and weight control. Instructed to do self-breast exam, and continue to get yearly mammogram Immunization information provided: Yearly flu vaccine, shingles vaccine starting at age 50, at age 65 to start getting Prevnar 13 followed 1 year later by Pneumovax 23. Colonoscopy (6) Cardiac arrhythmia: Code(s): I49.9 - Cardiac arrhythmia, unspecified Plan: Currently on metoprolol succinate 12.5 mg 1 daily followed by cardiology Orders: Orders Complete Blood Count Auto Diff 04/09/24 D75.89 - Other specified diseases of blood and blood-forming organs, F41.9 - Anxiety disorder, unspecified, I10 - Essential (primary) hypertension, M85.852 - Other specified disorders of bone density and structure, left thigh, Z00.01 - Encounter for general adult medical examination with abnormal findings, Z51.81 - Encounter for therapeutic drug level monitoring, Z79.83 - snf (current) use of bisphosphonates Basic Metabolic Panel Fasting 04/09/24 D75.89 - Other specified diseases of blood and blood-forming organs, F41.9 - Anxiety disorder, unspecified, I10 - Essential (primary) hypertension, M85.852 - Other specified disorders of bone density and structure, left thigh, Z00.01 - Encounter for general adult medical examination with abnormal findings, Z51.81 - Encounter for therapeutic drug level monitoring, Z79.83 - manager long term care (current) use of bisphosphonates Alanine Aminotransferase 04/09/24 D75.89 - Other specified diseases of blood and blood-forming organs, F41.9 - Anxiety disorder, unspecified, I10 - Essential (primary) hypertension, M85.852 - Other specified disorders of bone density and structure, left thigh, Z00.01 - Encounter for general adult medical examination with abnormal findings, Z51.81 - Encounter for therapeutic drug level monitoring, Z79.83 - snf (current) use of bisphosphonates Aspartate Amino Transferase 04/09/24 D75.89 - Other specified diseases of blood and blood-forming organs, F41.9 - Anxiety disorder, unspecified, I10 - Essential (primary) hypertension, M85.852 - Other specified disorders of bone density and structure, left thigh, Z00.01 - Encounter for general adult medical examination with abnormal findings, Z51.81 - Encounter for therapeutic drug level monitoring, Z79.83 - snf (current) use of bisphosphonates Vitamin B12 and Folate 04/09/24 D75.89 - Other specified diseases of blood and blood-forming organs, F41.9 - Anxiety disorder, unspecified, I10 - Essential (primary) hypertension, M85.852 - Other specified disorders of bone density and structure, left thigh, Z00.01 - Encounter for general adult medical examination with abnormal findings, Z51.81 - Encounter for therapeutic drug level monitoring, Z79.83 - snf (current) use of bisphosphonates Vitamin D 25-OH Total 04/09/24 D75.89 - Other specified diseases of blood and blood-forming organs, F41.9 - Anxiety disorder, unspecified, I10 - Essential (primary) hypertension, M85.852 - Other specified disorders of bone density and structure, left thigh, Z00.01 - Encounter for general adult medical examination with abnormal findings, Z51.81 - Encounter for therapeutic drug level monitoring, Z79.83 - snf (current) use of bisphosphonates Lipid Panel 04/09/24 D75.89 - Other specified diseases of blood and blood-forming organs, F41.9 - Anxiety disorder, unspecified, I10 - Essential (primary) hypertension, M85.852 - Other specified disorders of bone density and structure, left thigh, Z00.01 - Encounter for general adult medical examination with abnormal findings, Z51.81 - Encounter for therapeutic drug level monitoring, Z79.83 - manager long term care (current) use of bisphosphonates Medications: Changed From citalopram 10 mg PO DAILY 90 tabs 1RF To citalopram 20 mg PO DAILY 30 tabs 5RF Coding Level of Care Code Est Pt Prev Care >65y(06516) Diagnoses Osteopenia of left femoral neck M85.852 Essential hypertension I10 Anxiety F41.9 Macrocytosis without anemia D75.89 Annual visit for general adult medical examination with abnormal findings Z00.01 Cardiac arrhythmia I49.9 Additional Codes MAXIMUS-7 Assessment Billing - MAXIMUS-7 Assessment Tool: MAXIMUS-7 Assessment 29156 ([id number])
== END 2024-04-09 14:12 | disposition home or self-care (01) ==
PROVIDERS: PCP Internal Medicine; Visit Provider Internal Medicine
DX: Z00.00 Encounter for general adult medical examination without abnormal findings (principal); M85.852 Other specified disorders of bone density and structure, left thigh; I10 Essential (primary) hypertension; F41.9 Anxiety disorder, unspecified; D75.89 Other specified diseases of blood and blood-forming organs; I49.9 Cardiac arrhythmia, unspecified
CPT/HCPCS: 99397

== ENCOUNTER 2024-04-15 08:05 | Outpatient (REF) | payer MEDICARE, SELFPAY ==
[2024-04-15 10:09] LABS: MANUAL DIFF FLAG NO
[2024-04-15 10:17] LABS: Basophils Absolute Auto 0.1 X10*3/uL (0.0-0.2); Basophils Percent Auto 1.4 % (0-2); Eosinophils Absolute Auto 0.3 X10*3/uL (0.0-0.4); Eosinophils Percent Auto 5.8 % (0-4); Hematocrit 38.4 % (37.0-47.0); Hemoglobin 12.9 g/dl (12.0-16.0); Imm Gran Abs Auto 0.01 X10*3/uL (0.00-0.03); Imm Gran Pct Auto 0.2 % (0.0-0.4); Lymphocytes Absolute Auto 1.1 X10*3/uL (1.2-4.9); Lymphocytes Percent Auto 26.3 % (20-40); Mean Corpuscular HGB Conc 33.6 g/dl (31.0-35.0); Mean Corpuscular Hemoglobin 33.7 pg (27.0-33.0); Mean Corpuscular Volume 100.3 fL (80.0-98.0); Mean Platelet Volume 10.9 fL (9.4-12.3); Monocytes Absolute Auto 0.5 X10*3/uL (0.1-1.2); Monocytes Percent Auto 12.2 % (2-11); Neutrophils Absolute Auto 2.3 x10*3/uL (2.0-8.3); Neutrophils Percent Auto 54.1 % (45-73); Platelet Count 272 X10*3/uL (160-400); Red Blood Count 3.83 X10*6/uL (4.20-5.50); White Blood Count 4.3 X10*3/uL (4.8-10.8)
[2024-04-15 10:37] LABS: Alanine Aminotransferase 25 U/L (0-31); Anion Gap 14 (12-20); Aspartate Amino Transferase 18 U/L (5-31); Blood Urea Nitrogen 17 mg/dL (9-16); Calcium 10.1 mg/dL (8.4-10.2); Carbon Dioxide 27 mmol/L (22-29); Chloride 104 mmol/L (96-108); Cholesterol 225 mg/dL (<200); Estimated Glomerular Filt Rate > 60; Glucose Fasting 100 mg/dL (60-99); HDL Cholesterol 80 mg/dL (>40); LDL Cholesterol Calculated 133 mg/dL (<100); Potassium 4.9 mmol/L (3.3-5.1); Sodium 140 mmol/L (135-145); Triglycerides 62 mg/dL (<150)
[2024-04-15 10:44] LABS: Vitamin D 25-OH Total 61.2 ng/mL (>30)
[2024-04-15 11:12] LABS: Folate 12.7 ng/mL (> or = 4.0); Vitamin B12 371 pg/mL (200-900)
== END 2024-04-15 08:06 | disposition home or self-care (01) ==
LOC: HO.HMGCLDS 08:05
PROVIDERS: PCP Internal Medicine; Visit Provider Internal Medicine
DX: Z00.01 Encounter for general adult medical examination with abnormal findings (principal); M85.852 Other specified disorders of bone density and structure, left thigh; I10 Essential (primary) hypertension; F41.9 Anxiety disorder, unspecified; D75.89 Other specified diseases of blood and blood-forming organs; Z51.81 Encounter for therapeutic drug level monitoring; Z79.83 Long term (current) use of bisphosphonates
CPT/HCPCS: 36415; 80048; 80061; 82306; 82607; 82746; 84450; 84460; 85025

== ENCOUNTER 2024-09-08 11:35 | Outpatient (REF) | payer MEDICARE, SELFPAY ==
--- NOTE | ~2024-09-08 | XR_ITS ---
EXAMINATION: XR HIP LEFT CLINICAL INFORMATION: Pain in left hip M25.552. COMPARISON: CT Pelvis with IV contrast 09/25/2005 (report only). TECHNIQUE: Two views of the left hip. FINDINGS: Left hip joint spacing and alignment are normal in appearance. No suspicious skeletal lesions identified. Incidental note made of scattered pelvic phleboliths. No additional dystrophic soft tissue calcifications identified. Grossly normal bone mineralization visualized. XR/XR hip LT min 2V IMPRESSION: Normal left hip. Electronically signed by: Yunior Rodriguez MD 10/23/2024 08:27 AM [facility]
== END 2024-09-08 11:36 | disposition home or self-care (01) ==
LOC: HO.HMGCX 11:35
PROVIDERS: PCP Internal Medicine; Visit Provider Internal Medicine
DX: M25.552 Pain in left hip (principal); F41.9 Anxiety disorder, unspecified; I10 Essential (primary) hypertension; M85.852 Other specified disorders of bone density and structure, left thigh; R73.01 Impaired fasting glucose; Z79.899 Other long term (current) drug therapy
CPT/HCPCS: 73502; 96127; 99212

== ENCOUNTER 2024-09-08 11:35 | Outpatient (AMB) | payer MEDICARE, SELFPAY ==
[2024-09-08 12:31] VITALS: BP 110/76; PULSE 57; O2SAT 98; BMI 23.4
--- NOTE | 2024-09-08 12:31 | A.OFFPC_ITS ---
Vital Signs 09/08/24 12:31 Height 5 ft 1 in Weight 124 lb BMI 23.4 BP 110/76 Blood Pressure Location Rt brachial Position Sitting Pulse 57 Pulse Source Pulse Oximeter Pulse Oximetry (%) 98 Oxygen Delivery Method Room Air Intake Visit Reasons: Follow up anxiety, HTN, IFG Allergies codeine Allergy (Unknown, Verified 09/08/24 12:53) lightheadedness/dizzy Medication List - Last Reconciled 09/08/24 by Ashley Guzmán MD alendronate 70 mg PO QWEEK 90 days amlodipine 5 mg PO DAILY 90 days calcium carbonate (Calcium 600) 600 mg PO DAILY cholecalciferol (vitamin D3) 50 mcg PO DAILY 90 days citalopram 20 mg PO DAILY lorazepam 0.5 mg PO DAILY PRN metoprolol succinate ER 12.5 mg (1/2 x 25 mg) PO DAILY multivitamin,[id number] (Complete Multivitamin tablet) 1 tab PO DAILY Tobacco use date assessed: 09/08/24 Fall risk assessment: 1 Fall in past year Last assessed Fall Risk: 09/08/24 Dental Screening Dental Screen Date: 04/09/24 HPI Follow up anxiety, HTN, IFG HPI Details - The patient is a 69 year old female pr esenting today for follow-up. - She has chronic anxiety managed with c italopram, reporting no side effects and expressing satisfaction with current management. - Reports a history of essential hyperte nsion, currently on amlodipine 5 mg once a day and metoprolol succinate ER 12.5 mg once a day. Blood pressure readings are stable. - Alendronate has been prescribed for os teopenia; patient completed a recent bone density scan indicating slight improvement in the left femur and spine. - Reports left lower back pain, with sym ptoms consistent with piriformis syndrome, involving discomfort when moving certain ways, affecting the left side primarily. [facility], LAT[facility] Medical History Macrocytosis without anemia Impaired fasting glucose Osteopenia of left femoral neck Encounter for monitoring alendronate therapy Impacted cerumen of both ears Osteoporosis Rosacea Essential hypertension Anxiety Surgical History Hx of colonoscopy History of cataract surgery History of appendectomy Hx of cholecystectomy Family History Father Hx of CABG CVD (cardiovascular disease) Mother HTN (hypertension) Parkinson disease Brother No problems noted. Brother No problems noted. Sister No problems noted. Social History Housing: House Alcohol intake: never Patient Tobacco Use Status: Never used Tobacco e-Cigarette/Vaping Use: Never Used Second Hand Smoke Exposure: No service: No Current occupational status: retired Current occupational exposures/hazards: No Cognitive needs: No Hearing needs: No Vision needs: Yes Questionnaire Thrive Questionnaire Date Thrive assessed: 04/08/24 I am a: Patient What is your living situation today?: I have a steady place to live Within the past 12 months, did the food you bought not last and you didn't have the money to get more?: Never true Within the past 12 months, did you worry whether your food would run out before you got money to buy more?: Never true Do you have trouble paying for medicines?: No Do you have trouble getting transportation to medical appointments?: No Do you have trouble paying your heating and electricity bill?: No Do you have trouble taking care of your child, family member or friend?: No Do you have trouble with day-to-day activities such as bathing, preparing meals, shopping, managing finances, etc.?: No Are you currently unemployed and looking for a job?: No Are you interested in more education?: No Please select the resources that you would like help with: None Currently or been in a relationship where the following occur: No concerns reported THRIVE Score: 0 MAXIMUS-7 AMB Questionnaire MAXIMUS-7 Date MAXIMUS - 7 assessed: 09/08/24 Feeling nervous, anxious, or on edge: 0 = Not at all Not being able to stop or control worryin = Not at all Worrying too much about different things: 0 = Not at all Trouble relaxin = Not at all Being so restless that it is hard to sit still: 0 = Not at all Becoming easily annoyed or irritable: 0 = Not at all Feeling afraid as if something awful might happen: 0 = Not at all Total MAXIMUS-7 score (0-4 normal; 5-9 mild; 10-14 moderate; 15-21 severe): 0 Source: Developed by Drs. Oswaldo Prasad, Wendy Dewey, Yung Michael and colleagues, with an educational leslie from [employer]. MAXIMUS-7 Assessment Billing MAXIMUS-7 Assessment Tool: MAXIMUS-7 Assessment 83306 Review of Systems Const Denies chills, Denies fatigue, Denies fever(s), Denies frequent falls and Denies weakness Eyes Denies change in vision ENT Denies dizziness Card Denies chest pain, Denies leg edema, Denies lightheadedness, Denies palpitations, Denies dyspnea, Denies dyspnea on exertion and Denies orthopnea Resp Denies cough, Denies dyspnea and Denies dyspnea on exertion GI Denies hematochezia and Denies change in stool character Reports no additional complaints Musc Reports as per HPI, Denies abnormal gait, Denies muscle weakness and Denies numbness Skin/Breast Denies rash Neuro Denies abnormal gait, Denies dizziness, Denies frequent falls, Denies numbness and Denies weakness Psych Reports as per HPI Endo Denies fatigue and Denies palpitations Irving/Lymph Reports no additional complaints Aller/Immun Reports no additional complaints Physical exam (Primary Care) Vital Signs: Last Vital Signs Pulse 57 09/08/24 12:31 BP 110/76 09/08/24 12:31 Pulse Ox 98 09/08/24 12:31 Oxygen Delivery Method Room Air 09/08/24 12:31 BMI result Body Mass Index 23.4 Tobacco/Smoking Status: Tobacco use Status Tobacco use date assessed 09/08/24 09/08/24 12:34 Patient Tobacco Use Status Never used Tobacco 09/08/24 12:32 e-Cigarette/Vaping Use Never Used 09/08/24 12:32 Thrive Assessment: Date of Thrive Assessment Date Thrive assessed 04/08/24 09/08/24 12:32 Currently or been in a relationship where the following occur: No concerns reported Const General: no acute distress Nutritional Appearance: average body habitus Orientation/consciousness: patient oriented x3 HENMT Ears: external ears normal General nose exam: Normal external nose present Face and sinus: Yes face symmetric Mouth: Normal oral and palatal mucosa present and moist mucous membranes Eyes General: appearance normal, both eyes and all related structures Neck Neck: Yes full ROM and Yes no lymphadenopathy Resp Effort & Inspection: normal respiratory effort and able to speak in complete sentences Auscultation: clear to auscultation bilaterally Cardio Rate: regular rate Rhythm: regular rhythm Heart sounds: S1 normal heart sound present and S2 normal heart sound present GI Inspection: Yes normal to inspection Palpation (GI): Soft to palpation, nontender and no guarding Auscultation: normal bowel sounds Back/Spine/Pelvis Other: Tenderness on palpation over upper part of left buttock, negative straight leg raising sign bilaterally full range of motion of left hip joint Skin General skin exam: no rashes or lesions noted Neuro General: patient oriented x3, gait normal, moves all extremities, no focal motor deficits and CN's II-XI intact bilaterally Extrem General: Yes full ROM, Yes no joint enlargement, Yes no clubbing, cyanosis or edema and Yes normal gait Psych Appearance: grossly normal Mental Status: mental status grossly normal Speech and movement: Normal speech and movement present Affect: normal affect Attitude: cooperative Thought process: Normal thought process present Thought content: Normal thought content present Coding Level of Care Code Est Pt Level 4 (57269) Diagnoses Pain of left hip M25.552 Anxiety F41.9 Essential hypertension I10 Osteopenia of left femoral neck M85.852 Impaired fasting glucose R73.01 Additional Codes MAXIMUS-7 Assessment Billing - MAXIMUS-7 Assessment Tool: MAXIMUS-7 Assessment 13406 ([id number]) Assessment & Plan Assessment & Plan (1) Pain of left hip: Code(s): M25.552 - Pain in left hip (2) Anxiety: Code(s): F41.9 - Anxiety disorder, unspecified Category: Medical (3) Essential hypertension: Code(s): I10 - Essential (primary) hypertension Category: Medical (4) Osteopenia of left femoral neck: Comment: Noted on bone density done in 2021 Code(s): M85.852 - Other specified disorders of bone density and structure, left thigh Category: Medical (5) Impaired fasting glucose: Code(s): R73.01 - Impaired fasting glucose Category: Medical Plan: Your previous fasting blood sugars were elevated above 100 mg/dL. Impaired glucose metabolism increases the risk for developing diabetes mellitus type 2, as well as heart attack and stroke later on. Lifestyle changes that promotes weight loss, healthy eating habits, and regular exercise are important, and can prevent the progression to diabetes Plan - Continue with current medication regimen and monitor for any side effects. Lorazepam refill sent - continue alendronate, continue vitamin-D 3 supplementation, and take adequate calcium from dietary sources. Reinforced importance of doing regular weight- bearing exercise repeat another bone density scan in 2025 - Schedule and complete x-ray of left hip joint, for evaluation of left-sided leg discomfort. - recommended application of heat, or, ice, and rest when experiencing musculoskeletal discomfort. - Plan for annual blood work ahead of next year's physical exam. - Utilize the patient portal for access to health records and test results. Patient was informed and verbally consented to the use of an ambient scribe for clinic note documentation during this visit. Orders: Orders Lipid Panel 05/16/25 F41.9 - Anxiety disorder, unspecified, I10 - Essential (primary) hypertension, M85.852 - Other specified disorders of bone density and structure, left thigh, R73.01 - Impaired fasting glucose, Z13.220 - Encounter for screening for lipoid disorders Alanine Aminotransferase 05/16/25 F4.9 - Anxiety disorder, unspecified, I10 - Essential (primary) hypertension, M85.852 - Other specified disorders of bone density and structure, left thigh, R73.01 - Impaired fasting glucose, Z13.220 - Encounter for screening for lipoid disorders Basic Metabolic Panel Fasting 05/16/25 F41.9 - Anxiety disorder, unspecified, I10 - Essential (primary) hypertension, M85.852 - Other specified disorders of bone density and structure, left thigh, R73.01 - Impaired fasting glucose, Z13.220 - Encounter for screening for lipoid disorders XR hip LT min 2V 09/08/24 M25.552 - Pain in left hip Vitamin D 25-OH Total 05/16/25 F41.9 - Anxiety disorder, unspecified, I10 - Essential (primary) hypertension, M85.852 - Other specified disorders of bone density and structure, left thigh, R73.01 - Impaired fasting glucose, Z13.220 - Encounter for screening for lipoid disorders Aspartate Amino Transferase 05/16/25 F41.9 - Anxiety disorder, unspecified, I10 - Essential (primary) hypertension, M85.852 - Other specified disorders of bone density and structure, left thigh, R73.01 - Impaired fasting glucose, Z13.220 - Encounter for screening for lipoid disorders Medications: Refilled lorazepam 0.5 mg PO DAILY PRN 14 tabs 0RF anxiety F41.9 - Anxiety disorder, unspecified
== END 2024-09-08 13:14 | disposition home or self-care (01) ==
PROVIDERS: PCP Internal Medicine; Visit Provider Internal Medicine
DX: M25.552 Pain in left hip (principal); F41.9 Anxiety disorder, unspecified; I10 Essential (primary) hypertension; M85.852 Other specified disorders of bone density and structure, left thigh; R73.01 Impaired fasting glucose

== ENCOUNTER 2024-11-04 11:47 | Outpatient (REF) | payer MEDICARE, SELFPAY | END 2024-11-04 11:48 | disposition home or self-care (01) | LOC: HO.MAMMO 11:47 | PROVIDERS: PCP Internal Medicine; Visit Provider Internal Medicine | DX: Z12.31 Encounter for screening mammogram for malignant neoplasm of breast (principal) | CPT/HCPCS: 77063; 77067 ==

== ENCOUNTER → 2024-11-04 12:00 | Outpatient (BNV) | payer MEDICARE, SELFPAY | PROVIDERS: PCP Internal Medicine; Visit Provider Internal Medicine | DX: Z12.31 Encounter for screening mammogram for malignant neoplasm of breast (principal) | CPT/HCPCS: 77063; 77067 ==

== ENCOUNTER 2024-11-05 07:55 | Outpatient (AMB) | payer MEDICARE, SELFPAY ==
[2024-11-05 08:15] VITALS: BP 108/68; PULSE 53; O2SAT 98
--- NOTE | 2024-11-05 08:15 | AM.OFFWIN_ITS ---
Intake Vital Signs 11/05/24 08:15 Weight 125 lb BP 108/68 Blood Pressure Location Lt brachial Position Sitting Pulse 53 Pulse Source Pulse Oximeter Pulse Oximetry (%) 98 Oxygen Delivery Method Room Air Intake Visit Reasons: EP Ear flush Intake Note: Patient here for ear flushing. Patient Tobacco Use Status: Never used Tobacco Allergies codeine Allergy (Unknown, Verified 11/05/24 08:29) lightheadedness/dizzy Do you need a note to return to daycare/school/sports/work: No HPI HPI Comments History of Present Illness Details History of Present Illness - The patient is a 69-year-old female pr esenting with wax build up in both ears. - The primary concern involves a chronic issue of cerumen buildup that causes muffled hearing, which typically requires annual intervention. - There is no accompanying pain, but hea ring becomes impaired as the impaction increases. - She has utilized cerumenolytics previo usly on occasion to manage the condition and prevent wax buildup. - Treatment history includes previous ep isodes where ear irrigation was performed. Physical Exam General: Cooperative, healthy appearing, comfortable, no acute distress and well developed Orientation: Patient oriented x3 Limitations: No limitations Head: Normal to inspection Ears: Hearing muffled due to wax buildup bilaterally, bilateral TM with cerumen impaction Nose: Normal external nose present Face and sinus: Normal facial exam Eyes: Appearance normal, both eyes and all related structures Neck: Normal visual inspection and Yes full ROM Respiratory: Normal respiratory effort and able to speak in complete sentences. Skin: No rashes or lesions noted Neuro: Patient oriented x3 Extremities: Normal to inspection [facility] Medical History (Updated 11/05/24 @ 08:36 by Kim Garcia PA-C) Impacted cerumen of both ears Macrocytosis without anemia Impaired fasting glucose Osteopenia of left femoral neck Encounter for monitoring alendronate therapy Osteoporosis Rosacea Essential hypertension Anxiety Surgical History Hx of colonoscopy History of cataract surgery History of appendectomy Hx of cholecystectomy Family History Father Hx of CABG CVD (cardiovascular disease) Mother HTN (hypertension) Parkinson disease Brother No problems noted. Brother No problems noted. Sister No problems noted. Social History Housing: House Alcohol intake: never Patient Tobacco Use Status: Never used Tobacco e-Cigarette/Vaping Use: Never Used Second Hand Smoke Exposure: No service: No Current occupational status: retired Current occupational exposures/hazards: No Cognitive needs: No Hearing needs: No Vision needs: Yes Review of Systems Const All systems reviewed & are unremarkable except as noted in HPI and below Physical Exam Vital Signs: Last Vital Signs Pulse 53 11/05/24 08:15 BP 108/68 11/05/24 08:15 Pulse Ox 98 11/05/24 08:15 Oxygen Delivery Method Room Air 11/05/24 08:15 Office Procedures Cerumen Removal From which ear canal was the cerumen removed: bilateral Removal: irrigation Notes: patient tolerated procedure well, no complications and ear canal clear [id number] Irrigation/Lavage Assessment & Plan Assessment & Plan (1) Impacted cerumen of both ears: Code(s): H61.23 - Impacted cerumen, bilateral Plan: Upon the patient's agreement, ear irrigation was done to resolve the current imp action. The patient was informed about the potential for using these agents as a prophylactic measure, recommending usage approximately every two weeks to minimize recurrence. This preventive strategy could potentially reduce the frequency of necessary interventions. Ear canals clear s/p irrigation. Patient was informed and verbally consented to the use of an ambient scribe for clinic note documentation during this visit. Coding Level of Care Code Est Pt Level 4 (54986) Diagnoses Impacted cerumen of both ears H61.23 CPT Codes Office Procedure - CPT: 32174-Dax Irrigation/Lavage ([id number])
== END 2024-11-05 09:16 | disposition home or self-care (01) ==
PROVIDERS: PCP Internal Medicine; Visit Provider Physician Assistant
DX: H61.23 Impacted cerumen, bilateral (principal)

== ENCOUNTER → 2024-11-05 07:55 | Outpatient (BNVA) | payer MEDICARE, SELFPAY | PROVIDERS: PCP Internal Medicine | DX: H61.23 Impacted cerumen, bilateral (principal) | CPT/HCPCS: 69209; 99212 ==

== ENCOUNTER 2024-12-02 10:43 | Outpatient (AMB) | payer OTHER, MEDICARE, SELFPAY ==
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
[2024-12-02 11:07] VITALS: BP 112/70; PULSE 61; O2SAT 98
== END 2024-12-02 12:05 | disposition home or self-care (01) ==
PROVIDERS: PCP Internal Medicine; Visit Provider Physician Assistant
DX: M54.2 Cervicalgia (principal); V89.2XXA Person injured in unspecified motor-vehicle accident, traffic, initial encounter; Z04.2 Encounter for examination and observation following work accident

== ENCOUNTER → 2024-12-02 10:43 | Outpatient (BNVA) | payer OTHER, MEDICARE, SELFPAY | PROVIDERS: PCP Internal Medicine; Visit Provider Physician Assistant ==

== ENCOUNTER 2025-01-23 13:32 | Outpatient (AMB) | payer OTHER, MEDICARE, SELFPAY ==
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
[2025-01-23 13:56] VITALS: BP 116/78; PULSE 52; O2SAT 98; BMI 23.6
== END 2025-01-23 15:03 | disposition home or self-care (01) ==
PROVIDERS: PCP Internal Medicine; Visit Provider Physician Assistant
DX: M54.2 Cervicalgia (principal); V89.2XXD Person injured in unspecified motor-vehicle accident, traffic, subsequent encounter

== ENCOUNTER 2025-01-23 13:32 | Outpatient (REF) | payer OTHER, MEDICARE, SELFPAY ==
--- NOTE | ~2025-01-23 | XR_ITS ---
EXAMINATION: XR CERVICAL SPINE CLINICAL INFORMATION: M54.2 - Cervicalgia COMPARISON: None available. TECHNIQUE: 6 views of the cervical spine, inclusive of bilateral oblique views, were obtained. FINDINGS: There is a minimal right convex scoliosis, possibly positional. There is straightening of the normal lordosis. There is no fracture, compression deformity, or suspicious bone lesion. Craniocervical junction and C1-2 articulation are intact and aligned. There is a 2 mm degenerative retrolisthesis of C5 on C6, and a 4 mm anterolisthesis of C7 on T1. Alignment is otherwise anatomic. Severe disc degeneration is present C5-6 with sclerosis of the endplates and disc osteophytic spurs. Moderate to severe degeneration is present C4-5, C6-7 and C7-T1. There is relative preservation of C2-3. There is normal facet alignment, however there are multilevel left greater than right hypertrophic degenerative facet changes present. Oblique views demonstrate mild and moderate left right neural foraminal narrowing at C5-6 and C6-7. There is no prevertebral soft tissue abnormality. Imaged lung apices are clear. XR/XR cervical spine 5V IMPRESSION: No acute bony abnormalities. Moderate cervical spondylosis, most significant C5-6, and C7-T1. Electronically signed by: Gilmar Morales MD 01/23/2025 03:01 PM EDT
== END 2025-01-23 13:33 | disposition home or self-care (01) ==
LOC: HO.HMGCX 13:32
PROVIDERS: PCP Internal Medicine; Visit Provider Physician Assistant
DX: M54.2 Cervicalgia (principal); V89.2XXD Person injured in unspecified motor-vehicle accident, traffic, subsequent encounter
CPT/HCPCS: 72050

== ENCOUNTER → 2025-01-23 14:33 | Outpatient (BNV) | payer OTHER, MEDICARE, SELFPAY | PROVIDERS: PCP Internal Medicine; Visit Provider Radiology Diagnostic Radiology | DX: M54.2 Cervicalgia (principal); M47.892 Other spondylosis, cervical region | CPT/HCPCS: 72050 ==

== ENCOUNTER 2025-02-17 15:00 | Outpatient (RCR) | payer OTHER, MEDICARE, SELFPAY ==
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
--- NOTE | 2025-03-23 08:35 | MHC.PT.DC ---
[facility] [place] Office [place] Office [place] Office [address] [phone] F: [phone] F: [phone] F: [phone] F: [phone] Physical Therapy Discharge Report Diagnosis: This is a 69 yo female presenting to skilled PT with a script for cervicalgia. Date of Surgery: Date of Evaluation: 01/06/25 Date of Discharge: 03/23/25 Treatments to Date: 11 Cancellations to Date: 0 No Shows to Date: 0 Discharge Status: Patient Elected to Stop Recommend MD Follow-up Discharge Summary: 02/17: Pt without much change since evaluation day. She has come to 11 visits of PT. At this time she would benefit from a referral to another provider as PT is not improving her cervical ROM or symptoms. DC to MD. Educated to continue with HEP as tolerated. Patient's chart was DC'd after 30 days. Electronically signed by: Betina Flores PT Please sign and return to therapist. Thank you for your referral.
== END 2025-03-23 08:35 | disposition home or self-care (01) ==
LOC: HO.PTCHIC 15:00
PROVIDERS: PCP Internal Medicine; Visit Provider Internal Medicine
DX: M54.2 Cervicalgia (principal); V89.2XXA Person injured in unspecified motor-vehicle accident, traffic, initial encounter
CPT/HCPCS: 97110; 97140; 97161; 97162

== ENCOUNTER 2025-02-19 14:39 | Outpatient (AMB) | payer OTHER, MEDICARE, SELFPAY ==
--- NOTE | 2025-02-19 14:48 | A.OFFPC_ITS ---
Vital Signs 02/19/25 14:50 Height 5 ft 1 in Weight 125 lb BMI 23.6 BP 112/60 Blood Pressure Location Lt brachial Position Sitting Respiration 16 Pulse 62 Pulse Source Pulse Oximeter Temp 98.2 F Temp Source Oral Pulse Oximetry (%) 99 Oxygen Delivery Method Room Air Intake Visit Reasons: f/up from Physical therapy Intake Note: Pt is here today f/u from physical therapy Allergies codeine Allergy (Unknown, Verified 02/19/25 15:19) lightheadedness/dizzy Medication List - Last Reconciled 02/19/25 by Ashley Guzmán MD alendronate 70 mg PO QWEEK 90 days amlodipine 5 mg PO DAILY 90 days calcium carbonate (Calcium 600) 600 mg PO DAILY cholecalciferol (vitamin D3) 50 mcg PO DAILY 90 days citalopram 20 mg PO DAILY lorazepam 0.5 mg PO DAILY PRN metoprolol succinate ER 12.5 mg (1/2 x 25 mg) PO DAILY multivitamin,[id number] (Complete Multivitamin tablet) 1 tab PO DAILY Tobacco use date assessed: 02/19/25 Fall risk assessment: No Falls in past year Last assessed Fall Risk: 02/19/25 Dental Screening Dental Screen Date: 02/19/25 HPI f/up from Physical therapy HPI Details 70-year-old lady here today for follow-u p regarding her neck pain. She has already finished her physical therapy, which has not helped at all. Still in pain especially with sudden movements of her head like turning her head side ways when trying to look at the side mirror when driving. She has been taking Tylenol alternating with ibuprofen which affords no relief. Pain occasionally shoot down the arm, has a new accompanying numbness, no urinary or stool incontinence reported, no leg weakness PFSH Medical History Impacted cerumen of both ears Macrocytosis without anemia Impaired fasting glucose Osteopenia of left femoral neck Encounter for monitoring alendronate therapy Osteoporosis Rosacea Essential hypertension Anxiety Surgical History Hx of colonoscopy History of cataract surgery History of appendectomy Hx of cholecystectomy Family History Father Hx of CABG CVD (cardiovascular disease) Mother HTN (hypertension) Parkinson disease Brother No problems noted. Brother No problems noted. Sister No problems noted. Social History Housing: House Alcohol intake: never Patient Tobacco Use Status: Never used Tobacco e-Cigarette/Vaping Use: Never Used Second Hand Smoke Exposure: No service: No Current occupational status: retired Current occupational exposures/hazards: No Cognitive needs: No Hearing needs: No Vision needs: Yes Questionnaire PHQ-9 Over the last 2 weeks, how often have you been bothered by any of the following problems? 1. Little interest or pleasure in doing things: several days 2. Feeling down, depressed, or hopeless: not at all 3. Trouble falling or staying asleep, or sleeping too much: several days 4. Feeling tired or having little energy: several days 5. Poor appetite or overeating: not at all 6. Feeling bad about yourself - or that you are a failure or have let yourself or your family down: not at all 7. Trouble concentrating on things, such as reading the newspaper or watching television: not at all 8. Moving or speaking so slowly that other people could have noticed. Or the opposite - being so fidgety or restless that you have been moving around a lot more than usual: not at all 9. Thoughts that you would be better off or of hurting yourself in some way: not at all Total score: 3 Depression Screening Interpretation: Negative Depression Screening Done: Yes 00406 - PHQ-9 Billing: Yes Source: Developed by Drs. Oswaldo Prasad, Wendy Dewey, Yung Michael and colleagues, with an educational leslie from [employer]. Thrive Questionnaire Date Thrive assessed: 02/12/25 I am a: Patient What is your living situation today?: I have a steady place to live Within the past 12 months, did the food you bought not last and you didn't have the money to get more?: Never true Within the past 12 months, did you worry whether your food would run out before you got money to buy more?: Never true Do you have trouble paying for medicines?: No Do you have trouble getting transportation to medical appointments?: No Do you have trouble paying your heating and electricity bill?: No Do you have trouble taking care of your child, family member or friend?: No Do you have trouble with day-to-day activities such as bathing, preparing meals, shopping, managing finances, etc.?: No Are you currently unemployed and looking for a job?: No Are you interested in more education?: No Please select the resources that you would like help with: None Currently or been in a relationship where the following occur: No concerns reported THRIVE Score: 0 AUDIT C Alcohol Use Questionnaire (AUDIT-C) 1. How often do you have a drink containing alcohol?: 2-3 times a week 2. How many drinks containing alcohol do you have on a typical day when you are drinking?: 1 or 2 3. How often do you have six or more drinks on one occasion?: Never Total Score: 3 MAXIMUS-7 AMB Questionnaire MAXIMUS-7 Date MAXIMUS - 7 assessed: 09/08/24 Feeling nervous, anxious, or on edge: 1 = Several days Not being able to stop or control worryin = Not at all Worrying too much about different things: 1 = Several days Trouble relaxin = Several days Being so restless that it is hard to sit still: 0 = Not at all Becoming easily annoyed or irritable: 1 = Several days Feeling afraid as if something awful might happen: 0 = Not at all Total MAXIMUS-7 score (0-4 normal; 5-9 mild; 10-14 moderate; 15-21 severe): 4 Source: Developed by Drs. Oswaldo Prasad, Wendy Dewey, Yung Michael and colleagues, with an educational leslie from [employer]. Review of Systems Const All systems reviewed & are unremarkable except as noted in HPI and below Physical exam (Primary Care) Vital Signs: Last Vital Signs Temp 98.2 F 02/19/25 14:50 Pulse 62 02/19/25 14:50 Resp 16 02/19/25 14:50 BP 112/60 02/19/25 14:50 Pulse Ox 99 02/19/25 14:50 Oxygen Delivery Method Room Air 02/19/25 14:50 BMI result Body Mass Index 23.6 Tobacco/Smoking Status: Tobacco use Status Tobacco use date assessed 02/19/25 02/19/25 14:58 Patient Tobacco Use Status Never used Tobacco 02/19/25 14:58 e-Cigarette/Vaping Use Never Used 02/19/25 14:58 PHQ-9: PHQ-9 Score PHQ-9: Total score 4 02/19/25 15:20 Depression Screening Interpretation: Negative Thrive Assessment: Date of Thrive Assessment Date Thrive assessed 02/12/25 02/19/25 14:58 Currently or been in a relationship where the following occur: No concerns reported Const Nutritional Appearance: average body habitus Orientation/consciousness: patient oriented x3 Neck Other: Decreased range of motion of cervical spine due to pain especially on lateral flexion Neck: Yes no lymphadenopathy Resp Effort & Inspection: normal respiratory effort and able to speak in complete sentences Auscultation: clear to auscultation bilaterally Cardio Rate: regular rate Rhythm: regular rhythm Heart sounds: S1 normal heart sound present and S2 normal heart sound present GI Inspection: Yes normal to inspection Palpation (GI): Soft to palpation, nontender and no guarding Auscultation: normal bowel sounds Skin General skin exam: no rashes or lesions noted Neuro General: patient oriented x3, gait normal, moves all extremities, no focal motor deficits and CN's II-XI intact bilaterally Extrem General: Yes full ROM, Yes no joint enlargement, Yes no clubbing, cyanosis or edema and Yes normal gait Psych Appearance: grossly normal Mental Status: mental status grossly normal Speech and movement: Normal speech and movement present Affect: normal affect Attitude: cooperative Thought process: Normal thought process present Thought content: Normal thought content present Coding Level of Care Code Est Pt Level 3 (38499) Diagnoses Cervicalgia M54.2 Additional Codes PHQ-9 - 29539 - PHQ-9 Billing: Yes ([id number]) Assessment & Plan Assessment & Plan (1) Cervicalgia: Code(s): M54.2 - Cervicalgia Category: Medical Plan: No improvement with physical therapy or taking NSAIDs alternating with Tylenol. Will order an MRI of cervical spine without contrast. Follow-up after test done Orders: Orders MR cervical spine wo con 02/19/25 M54.2 - Cervicalgia
[2025-02-19 14:50] VITALS: BP 112/60; PULSE 62; RESP 16; TEMP 36.8; O2SAT 99; BMI 23.6
== END 2025-02-19 15:47 | disposition home or self-care (01) ==
LOC: HO.HMCC 14:39
PROVIDERS: PCP Internal Medicine; Visit Provider Internal Medicine
DX: M54.2 Cervicalgia (principal)

== ENCOUNTER → 2025-02-19 14:39 | Outpatient (BNVA) | payer OTHER, MEDICARE, SELFPAY | PROVIDERS: PCP Internal Medicine; Visit Provider Internal Medicine | DX: M54.2 Cervicalgia (principal) | CPT/HCPCS: 96127 ==

== ENCOUNTER 2025-03-06 16:21 | Outpatient (REF) | payer OTHER, MEDICARE, SELFPAY ==
--- NOTE | ~2025-03-06 | MR_ITS ---
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 Soft tissues of the neck are normal. Cervical cord normal size and signal. Loss of normal cervical lordosis. 3 mm of retrolisthesis of C3 on C4. 4 mm of anterolisthesis of C4 on C5. 3 mm of retrolisthesis of C5 on C6. 4 mm of anterolisthesis of C7 on T1. No acute fractures or pathologic bone lesions. Moderate reactive signal within the endplates adjacent to the C4-C5, C5-C6, and C6-C7 intervertebral disc. Mild reactive signal within the remaining cervical and upper thoracic endplates. C2-C3:Moderate disc desiccation. Mild diffuse disc bulge. Mild facet and uncovertebral hypertrophy bilaterally. Mild canal stenosis. Mild bilateral foraminal stenosis. C3-C4:Moderate disc desiccation. Mild disc height loss and diffuse disc bulge. Mild facet and uncovertebral hypertrophy bilaterally. Mild canal stenosis. Moderate to severe right and severe left foraminal stenosis. Tskj-hyatkqw-bqww-right C4 nerve root compression. C4-C5:Moderate disc height loss and desiccation. Moderate diffuse disc bulge/ osteophyte with superimposed left paracentral protrusion. Moderate facet and uncovertebral hypertrophy bilaterally. Moderate to severe canal stenosis. Mild left cord flattening. Moderate to severe left and moderate right foraminal stenosis. Left C5 nerve root compression. C5-C6:Moderate disc height loss and desiccation. Moderate diffuse disc bulge with superimposed left paracentral and posterolateral protrusion. Moderate facet and uncovertebral hypertrophy bilaterally. Severe canal stenosis. Mild hadm-ogcesys-pyba-right cord flattening. Severe bilateral foraminal stenosis with bilateral C6 nerve root compression. C6-C7:Moderate disc height loss and desiccation. Moderate diffuse disc bulge with superimposed left posterolateral protrusion/osteophyte. Mild facet and uncovertebral hypertrophy bilaterally. Moderate cord flattening. Moderate to severe bilateral foraminal stenosis with bilateral C7 nerve root compression. C7-T1:Moderate disc height loss and desiccation. Mild diffuse disc bulge. Mild facet and uncovertebral hypertrophy bilaterally. Moderate canal stenosis. Moderate bilateral foraminal stenosis. IMPRESSION: 1. Multilevel degenerative disc and facet disease, as well as uncovertebral hypertrophy. 2. Multilevel canal stenoses, worst at C4-C5 and C5-C6 where there is mild cord flattening. 3. Multilevel foraminal stenoses, worst at C3-C4, C4-C5, C5-C6, and C6-C7 where there is associated intraforaminal nerve root compression. Correlation with clinical symptoms is recommended to assess relevance of these findings. This document has been electronically signed by: Simón Sosa MD on 03/06/2025 20:01:31
== END 2025-03-06 16:22 | disposition home or self-care (01) ==
LOC: HO.MRI 16:21
PROVIDERS: PCP Internal Medicine; Visit Provider Internal Medicine
DX: M54.2 Cervicalgia (principal)
CPT/HCPCS: 72141

== ENCOUNTER → 2025-03-06 16:21 | Outpatient (BNV) | payer OTHER, MEDICARE, SELFPAY | PROVIDERS: PCP Internal Medicine; Visit Provider Radiology Diagnostic Radiology | DX: M48.02 Spinal stenosis, cervical region (principal) | CPT/HCPCS: 72141 ==

== ENCOUNTER 2025-05-20 08:13 | Outpatient (REF) | payer MEDICARE, OTHER, SELFPAY ==
--- OUTSIDE RECORDS SUMMARY | 2025-05-16 23:59 | XMS_ITS | Continuity of Care Document ---
Author Organization [facility] [address] [place] [address]- Care Team Providers Care Bean Snipper Name Role Phone Arielle PETERS, Ashley Moses Primary Care Physician Encounter [facility] Date(s): 04/16/25 - 05/16/[address] [place], [place] [address] Encounter Type: Triage Allergies, Adverse Reactions, Alerts Substance Criticality Severity Reaction Reaction Severity Status codeine Unknown Active Immunizations Given and Recorded Vaccine Date Status Refusal Reason SARS-CoV-2 (COVID-19) mRNA BNT-162b2 vac 12/21/20 Given SARS-CoV-2 (COVID-19) mRNA BNT-162b2 vac 11/30/20 Given Medications alendronate 70 mg oral tablet 0 Refills, Maintenance, 05/04/25 1:10:00 PM EDT, Partial fill upon patient request if the prescription is for a schedule II opioid drug. Start Date: 05/04/25 Status: Ordered Repeat number: 1 amLODIPine 5 mg oral tablet 0 Refills, Maintenance, 05/04/25 1:10:00 PM EDT, Partial fill upon patient request if the prescription is for a schedule II opioid drug. Start Date: 05/04/25 Status: Ordered Repeat number: 1 calcium (as carbonate) 500 mg oral tablet, chewable 1 tablet = 500 mg, Daily, 0 Refills, Maintenance, 05/04/25 1:26:00 PM EDT, Partial fill upon patientrequest if the prescription is for a schedule II opioid drug. Start Date: 05/04/25 Status: Ordered Repeat number: 1 citalopram 20 mg oral tablet 0 Refills, Maintenance, 05/04/25 1:10:00 PM EDT, Partial fill upon patient request if the prescription is for a schedule II opioid drug. Start Date: 05/04/25 Status: Ordered Repeat number: 1 cyclobenzaprine 5 mg oral tablet 0 Refills, Maintenance, 05/04/25 1:10:00 PM EDT, Partial fill upon patient request if the prescription is for a schedule II opioid drug. Start Date: 05/04/25 Status: Ordered Repeat number: 1 diclofenac sodium 50 mg oral delayed release tablet 0 Refills, Maintenance, 05/04/25 1:10:00 PM EDT, Partial fill upon patient request if the prescription is for a schedule II opioid drug. Start Date: 05/04/25 Status: Ordered Repeat number: 1 LORazepam 0.5 mg oral tablet 0 Refills, Maintenance, 05/04/25 1:10:00 PM EDT, Partial fill upon patient request if the prescription is for a schedule II opioid drug. Start Date: 05/04/25 Status: Ordered Repeat number: 1 Metoprolol Succinate ER 25 mg oral tablet, extended release Refills 0, Maintenance, 05/04/25 1:10:00 PM EDT, Partial fill upon patient request if the prescription is for a schedule II opioid drug. Start Date: 05/04/25 Status: Ordered Repeat number: 1 Vitamin D3 1000 intl units oral capsule 1 capsule = 25 mcg, By Mouth, Daily, 0 Refills, Maintenance, 05/04/25 1:26:00 PM EDT, Partial fill upon patient request if the prescription is for a schedule II opioid drug. Start Date: 05/04/25 Status: Ordered Repeat number: 1 Social History Social History Type Response Smoking Status Never (less than 100 in lifetime) entered on: 05/04/25 Sex Sex Representation Female (finding) Patient Care team information Care Team Personnel Name: Arielle PETERS , Ashley Moses Position: Reference Physician Member Role: PCP Address: [address] [place] [address] Telecom: Care Team Related Persons Name: LISA WILLIAMSON Name: VICKI GERMAIN Name: [place] DIA Insurance Providers Guarantor name: [employer] Health Plan Information #: 1 Payer: [facility] Payer Identifier: NA Member Number: [id number] Group Number: [id number] Subscriber Identifier: [id number] Relationship to Subscriber: self Coverage Type: Medicare HMO Coverage Verification Date: [employer] Telecom: [employer] Address: NA
--- OUTSIDE RECORDS SUMMARY | 2025-05-20 08:36 | XMS_ITS | Patient Health Record ---
Author Organization [facility] Address [address] [place] [id number] Care Team Providers Care Social Worker Health Services Name Role Phone Arielle PETERS, Ashley Primary Care Provider Oswaldo Bronson Unavailable [phone] Allergies Allergen (clinical drug ingredient) Drug/Non Drug Allergy documented on EMR Reaction Allergy Type Onset Date Status codeine Codeine Sulfate Unknown Drug Allergy A ctive Reason For Referral No Information Medications Medication SIG (Take, Route, Frequency, Duration) Notes Start Date End Date Status Citalopram Hydrobromide 10 MG 1 tablet Orally Once a day Active amLODIPine Besylate 5 MG 1 tablet Orally Once a day Active Aspir-81 81 MG 1 tablet Orally Once a day Active Lorazepam 0.5 mg 1 tablet Oral when needed Active Calcium 500 MG 1 tablet with meals Orally Twice a day Active Multi Vitamin/Minerals - Orally Active Social History Tobacco Use: Social History Observation Description Date Details (start date - stop date) Never Smoker NA - NA Tobacco Use/Smoking Question Answer Notes Patient is a nonsmoker Alcohol Screen Question Answer Notes Did you have a drink contain ing alcohol in the past year? Yes How often did you have a dri nk containing alcohol in the past year? 2 to 3 times a week (3 points) How many drinks did you have on a typical day when you were drinking in the past year? 1 or 2 drinks (0 point) How often did you have 6 or more drinks on one occasion in the past year? Never (0 point) Points 3 Interpretation Positive Section Notes: Nonsmoker;occ alcohol Problems Problem Type SNOMED Code ICD Code Onset Dates Problem Status W/U Status Risk Notes Problem 706882258 Encounter for screening for malignant neoplasm of colon (Z12.11) Active confirmed Problem [id number] Preprocedural examination (Z01.818) Active confirmed Plan Of Treatment Future Test Test Name Order Date COLONOSCOPY 03/21/2017 Insurance Providers Payer Name Payer Address Payer Phone Subscriber Number Group Number Insured Name Patient Relationship to Insured Coverage Start Date Coverage End Date [facility] [address] [place] [phone] [id number] KIRSTY WILLIAMSON Self - patient is the insured Medical (General) History Medical History History ICD Code Denies ME,DM,CVA,Lung disease,renal dise ase Negative screening colonoscopy in 11/2006 except for hemorrhoids HTN Anxiety/depression Surgical History Surgery Date(Month/Year) cholecystectomy appendectomy
[2025-05-20 10:28] LABS: Alanine Aminotransferase 25 U/L (0-31); Anion Gap 12 (12-20); Aspartate Amino Transferase 26 U/L (5-31); Blood Urea Nitrogen 17 mg/dL (9-16); Calcium 9.3 mg/dL (8.4-10.2); Carbon Dioxide 28 mmol/L (22-29); Chloride 103 mmol/L (96-108); Cholesterol 215 mg/dL (<200); Estimated Glomerular Filt Rate > 60; HDL Cholesterol 77 mg/dL (>40); Potassium 4.0 mmol/L (3.3-5.1); Sodium 139 mmol/L (135-145); Triglycerides 75 mg/dL (<150)
== END 2025-05-20 08:14 | disposition home or self-care (01) ==
LOC: HO.HMGCLDS 08:13
PROVIDERS: PCP Internal Medicine; Visit Provider Internal Medicine
DX: R73.01 Impaired fasting glucose (principal); M85.852 Other specified disorders of bone density and structure, left thigh; I10 Essential (primary) hypertension; F41.9 Anxiety disorder, unspecified; Z13.220 Encounter for screening for lipoid disorders
CPT/HCPCS: 36415; 80048; 80061; 82306; 84450; 84460

== ENCOUNTER 2025-05-26 10:46 | Outpatient (AMB) | payer MEDICARE, SELFPAY ==
[2025-05-26 11:09] VITALS: BP 110/64; PULSE 46; RESP 16; TEMP 36.7; O2SAT 98; BMI 24.0
--- NOTE | 2025-05-26 11:09 | A.OFFPC_ITS ---
Vital Signs 05/26/25 11:09 Height 5 ft 1 in Weight 127 lb BMI 24.0 BP 110/64 Blood Pressure Location Lt brachial Position Sitting Respiration 16 Pulse 46 L Pulse Source Pulse Oximeter Temp 98.0 F Temp Source Oral Pulse Oximetry (%) 98 Oxygen Delivery Method Room Air Intake Visit Reasons: PE Intake Note: Pt is here today for her PE: Last mammogram 11/04/24, bone density scan 10/30/23, colonoscopy 06/19/17 Allergies codeine Allergy (Unknown, Verified 05/26/25 11:38) lightheadedness/dizzy Medication List - Last Reconciled 05/26/25 by Ashley Guzmán MD alendronate 70 mg PO QWEEK 90 days amlodipine 5 mg PO DAILY 90 days calcium carbonate (Calcium 600) 600 mg PO DAILY cholecalciferol (vitamin D3) 50 mcg PO DAILY 90 days citalopram 20 mg PO DAILY lorazepam 0.5 mg PO DAILY PRN metoprolol succinate ER 12.5 mg (1/2 x 25 mg) PO DAILY multivitamin,[id number] (Complete Multivitamin tablet) 1 tab PO DAILY Tobacco use date assessed: 05/26/25 Fall risk assessment: No Falls in past year Last assessed Fall Risk: 05/26/25 Dental Screening Dental Screen Date: 05/26/25 Did you have a dental visit in the last 12 months?: Yes Did you have a dental problem in the last 6 months where you did not have access to dental care?: No Was dental information given to patient?: Patient has dentist HPI PE HPI Details - 70-year-old female here today for her physical exam.. - Osteopenia was identified in the left hip and thigh, with normal findings in the spine. She is on alendronate for osteopenia and reports occasional heartburn, managed with Tums. -up-to-date with her breast cancer [facility], with last mammogram earlier this year showing negative findings. - Diverticulosis and non-bleeding finance intern al and external hemorrhoids were noted on her last colonoscopy in 2017 done byDr. Crespo. - The patient experiences vertigo, which is exacerbated by stress and certain lighting conditions. - Overactive bladder is managed with Ves icare, and the patient reports improvement but still requires a pad when out. - Restless leg syndrome occurs occasiona lly, affecting sleep quality. - Insomnia is present, with the patient reporting frequent awakenings and non- restorative sleep. [facility] Medical History Herniation of cervical intervertebral disc with radiculopathy Impacted cerumen of both ears Macrocytosis without anemia Impaired fasting glucose Osteopenia of left femoral neck Encounter for monitoring alendronate therapy Osteoporosis Rosacea Essential hypertension Anxiety Surgical History Hx of colonoscopy History of cataract surgery History of appendectomy Hx of cholecystectomy Family History Father Hx of CABG CVD (cardiovascular disease) Mother HTN (hypertension) Parkinson disease Brother No problems noted. Brother No problems noted. Sister No problems noted. Social History Housing: House Alcohol intake: never Patient Tobacco Use Status: Never used Tobacco e-Cigarette/Vaping Use: Never Used Second Hand Smoke Exposure: No service: No Current occupational status: retired Current occupational exposures/hazards: No Cognitive needs: No Hearing needs: No Vision needs: Yes Questionnaire PHQ-9 Over the last 2 weeks, how often have you been bothered by any of the following problems? Depression Screening Interpretation: Negative Depression Screening Done: Yes Source: Developed by Drs. Oswaldo Prasad, Wendy Dewey, Yung Michael and colleagues, with an educational leslie from [employer]. Thrive Questionnaire Date Thrive assessed: 02/12/25 I am a: Patient What is your living situation today?: I have a steady place to live Within the past 12 months, did the food you bought not last and you didn't have the money to get more?: Never true Within the past 12 months, did you worry whether your food would run out before you got money to buy more?: Never true Do you have trouble paying for medicines?: No Do you have trouble getting transportation to medical appointments?: No Do you have trouble paying your heating and electricity bill?: No Do you have trouble taking care of your child, family member or friend?: No Do you have trouble with day-to-day activities such as bathing, preparing meals, shopping, managing finances, etc.?: No Are you currently unemployed and looking for a job?: No Are you interested in more education?: No Please select the resources that you would like help with: None Currently or been in a relationship where the following occur: No concerns reported THRIVE Score: 0 MAXIMUS-7 AMB Questionnaire MAXIMUS-7 Date MAXIMUS - 7 assessed: 09/08/24 Source: Developed by Drs. Oswaldo Prasad, Wendy Dewey, Yung Michael and colleagues, with an educational leslie from [employer]. Review of Systems Const Denies chills, Denies fatigue, Denies fever(s), Denies frequent falls and Denies weakness Eyes Denies change in vision ENT Denies dizziness Card Denies chest pain, Denies leg edema, Denies lightheadedness, Denies palpitations, Denies dyspnea, Denies dyspnea on exertion and Denies orthopnea Resp Denies cough, Denies dyspnea and Denies dyspnea on exertion GI Denies hematochezia and Denies change in stool character Reports no additional complaints Musc Denies muscle weakness and Denies numbness Skin/Breast Denies rash Neuro Denies dizziness, Denies frequent falls, Denies numbness, Denies paresthesias and Denies weakness Psych Reports as per HPI Endo Denies fatigue and Denies palpitations Irving/Lymph Reports no additional complaints Aller/Immun Reports no additional complaints Physical exam (Primary Care) Vital Signs: Last Vital Signs Temp 98.0 F 05/26/25 11:09 Pulse 46 L 05/26/25 11:09 Resp 16 05/26/25 11:09 BP 110/64 05/26/25 11:09 Pulse Ox 98 05/26/25 11:09 Oxygen Delivery Method Room Air 05/26/25 11:09 BMI result Body Mass Index 24.0 Tobacco/Smoking Status: Tobacco use Status Tobacco use date assessed 05/26/25 05/26/25 11:10 Patient Tobacco Use Status Never used Tobacco 05/26/25 11:10 e-Cigarette/Vaping Use Never Used 05/26/25 11:10 Depression Screening Interpretation: Negative Thrive Assessment: Date of Thrive Assessment Date Thrive assessed 02/12/25 05/26/25 11:10 Currently or been in a relationship where the following occur: No concerns reported Const Nutritional Appearance: average body habitus Orientation/consciousness: patient oriented x3 Neck Other: Decreased range of motion of cervical spine due to pain especially on lateral flexion Neck: Yes no lymphadenopathy Chest Breast/axilla palpation: normal palpation of the breasts Resp Effort & Inspection: normal respiratory effort and able to speak in complete sentences Auscultation: clear to auscultation bilaterally Cardio Rate: regular rate Rhythm: regular rhythm Heart sounds: S1 normal heart sound present and S2 normal heart sound present GI Inspection: Yes normal to inspection Palpation (GI): Soft to palpation, nontender and no guarding Auscultation: normal bowel sounds General: Yes no CVA tenderness Back/Spine/Pelvis Back: no CVA tenderness and No back tenderness Skin General skin exam: no rashes or lesions noted Neuro General: patient oriented x3, gait normal, moves all extremities, no focal motor deficits and CN's II-XI intact bilaterally Extrem General: Yes full ROM, Yes no joint enlargement, Yes no clubbing, cyanosis or edema and Yes normal gait Psych Appearance: grossly normal Mental Status: mental status grossly normal Speech and movement: Normal speech and movement present Affect: normal affect Attitude: cooperative Results Reviewed Results Reviewed: Name: Kim Cline Age/Sex: 70/F : 1955 Unit#: [id number] Attend Dr: Ashley Guzmán MD Re05/20/25 Status: DEP REF Location: [facility] Disch: SPEC : [id number] KM: 05/20/25 STATUS: COMP REQ : [id number] RECD: 05/20/[address]: Ashley Guzmán MD COMP: 05/20/251047 ENTERED: 05/20/[address]: ORDERED: Met Prof Fast, AST, ALT, Lipid Panel, Vitamin D 25-OH Test Result Flag Reference Sodium 139 135-145 mmol/L Potassium 4.0 3.3-5.1 mmol/L CL 103 96-108 mmol/L CO2 28 22-29 mmol/L Gap 12 12-20 BUN 17 H 9-16 mg/dL Creat 0.92 0.5-1.4 mg/dL eGFR > 60 Chronic Kidney Disease: Estimated GFR < 60 mL/min/1.73m2 Severe Kidney Disease: Estimated GFR < 15 mL/min/1.73m2 FBS 114 H 60-99 mg/dL A fasting glucose from 100-125 mg/dl is considered impaired (pre-diabetes). CA 9.3 # 8.4-10.2 mg/dL AST (GOT) 26 5-31 U/L ALT (GPT) 25 0-31 U/L Triglyceride 75 <150 mg/dL Desirable Triglyceride: less than 150 mg/dL Borderline High Triglyceride 150-199 mg/dL High Triglyceride: 200-499 mg/dL Very High Triglyceride: greater than or equal to 5OO mg/dL Cholesterol 215 H <200 mg/dL Desirable Cholesterol: less than 200 mg/dL Borderline High Cholesterol: 200-239 mg/dL High Cholesterol: greater than 239 mg/dL LDL Calculated 123 H <100 mg/dL Desirable LDL: less than 100 mg/dL Near Optimal/Above Optimal LDL: 110-129 mg/dL Borderline High LDL: 130-159 mg/dL High LDL: 160-189 mg/dL Very High LDL: greater than or equal to 190 mg/dL HDL 77 >40 mg/dL Desirable HDL: greater than 40 mg/dL Note: This HDL assay may give artificially low results in patients with liver disease. Vitamin D 25-OH 55.6 >30 ng/mL Health Based Reference Values* < 20 ng/mL Deficient 20-30 ng/mL Insufficient > 30 ng/mL Sufficient Coding Level of Care Code Est Pt Prev Care >65y(17627) Diagnoses Annual visit for general adult medical examination with abnormal findings Z00.01 Essential hypertension I10 Impaired fasting glucose R73.01 Osteopenia of left femoral neck M85.852 Cardiac arrhythmia I49.9 Anxiety F41.9 Assessment & Plan Assessment & Plan (1) Annual visit for general adult medical examination with abnormal findings: Code(s): Z00.01 - Encounter for general adult medical examination with abnormal findings Plan: Latest fasting labs reviewed with patient. Recommended dental visit every 6 months and regular eye exams, at least every 2 years. Take adequate calcium in diet and vitamin-D 3 at 2000 IU per cap once a day, in addition to weight- bearing exercises to help maintain good muscle tone and weight control. Instructed to do self-breast exam, and continue to get yearly mammogram. Up-to-date with screening colonoscopy. Up-to-date with her adult vaccinations (2) Essential hypertension: Code(s): I10 - Essential (primary) hypertension Category: Medical Plan: Blood pressure at goal of less than 130/80. Continue with current medication. Reinforced importance of following a low sodium diet, getting regular exercise, and lowering stress levels. (3) Impaired fasting glucose: Code(s): R73.01 - Impaired fasting glucose Category: Medical Plan: Hemoglobin A1c obtained earlier this month by her insurance was at 5.5% (4) Osteopenia of left femoral neck: Comment: Noted on bone density done in 2021 Code(s): M85.852 - Other specified disorders of bone density and structure, left thigh Category: Medical Plan: Reinforced importance of doing regular weight-bearing exercise, continue taking alendronate, dietary supplement calcium and vitamin-D 3 supplements at 1000 units daily (5) Cardiac arrhythmia: Code(s): I49.9 - Cardiac arrhythmia, unspecified Category: Medical Plan: Continue metoprolol succinate 12.5 mg daily, noted to be bradycardic but asymptomatic. Stressed medication discussed, maintain adequate hydration and avoid stimulants, sees supervisor plastics once a year for follow-up (6) Anxiety: Code(s): F41.9 - Anxiety disorder, unspecified Category: Medical Plan: Controlled on citalopram 20 mg daily has lorazepam to take as needed for anxiety attacks
== END 2025-05-26 11:59 | disposition home or self-care (01) ==
LOC: HO.HMCC 10:48
PROVIDERS: PCP Internal Medicine; Visit Provider Internal Medicine
DX: Z00.01 Encounter for general adult medical examination with abnormal findings (principal); I10 Essential (primary) hypertension; R73.01 Impaired fasting glucose; M85.852 Other specified disorders of bone density and structure, left thigh; I49.9 Cardiac arrhythmia, unspecified; F41.9 Anxiety disorder, unspecified

== ENCOUNTER → 2025-05-26 10:46 | Outpatient (BNVA) | payer MEDICARE, SELFPAY | PROVIDERS: PCP Internal Medicine; Visit Provider Internal Medicine | DX: Z00.01 Encounter for general adult medical examination with abnormal findings (principal); M85.80 Other specified disorders of bone density and structure, unspecified site; K57.90 Diverticulosis of intestine, part unspecified, without perforation or abscess without bleeding; N32.81 Overactive bladder; G25.81 Restless legs syndrome; G47.00 Insomnia, unspecified; I10 Essential (primary) hypertension; R73.01 Impaired fasting glucose; F41.9 Anxiety disorder, unspecified; M85.852 Other specified disorders of bone density and structure, left thigh | CPT/HCPCS: 99397 ==